=== PATIENT | male | born 1985 | race Caucasian/White ===

== ENCOUNTER 2017-01-26 21:05 | Emergency (ER) | payer SELFPAY ==
[2017-01-26] MEDS ORDERED: Ketorolac 60 MG/2 ML SDV IM ONE (21:11)
[2017-01-26 21:13] VITALS: BP 177/106
--- NOTE | 2017-01-26 21:19 | EDM.PDOC ---
ED HPI LOWER BACK PAIN/INJURY - General Chief Complaint: Back Pain or Injury Stated Complaint: PT HAS BACK PAINS Time Seen by Provider: 01/26/17 21:11 - History of Present Illness INITIAL COMMENTS - FREE TEXT/NARRATIVE: HISTORY AND PHYSICAL: [31-year-old male who is coughing at home and had right sided back pain after a cough] History of Present Illness: [As she was out smoking a cigarette came in the house of] Review of Systems: As per history of present illness and below otherwise all systems reviewed and negative. Past medical history: As per history of present illness and as reviewed below otherwise noncontributory. Surgical history: As per history of present illness and as reviewed below otherwise noncontributory. Social history: No reported history of drug or alcohol abuse. Family history: As per history of present illness and as reviewed below otherwise noncontributory. Physical exam: Alert gentleman who does not want to sit down it hurts more is holding his right ribs in the back HEENT: Atraumatic, normocehpalic, pupils reactive, negative for conjunctival pallor or scleral icterus, mucous membranes moist, throat clear, neck supple, nontender, trachea midline. Lungs: Clear to auscultation, breath sounds equal bilaterally, chest non tender. Heart: S1S2, regular, negative for clicks, rubs, or JVD. Abdomen: Soft, nondistended, nontender. Negative for masses or hepatossplenmegaly. Negative for costovertebral tenderness. Pelvis: Stable nontender. Genitourinary: Deferred. Rectal: Deferred Extremities: Atraumatic, negative for cords or calf pain. Neurovascular unremarkable. Neuro: Awake, alert, oriented. Cranial nerves II through XII unremarkable. Cerebellum unremarkable. Motor and sensory unremarkable throughout. Exam nonfocal. Diagnostics: [XRAY ribs/chest] Therapeutics: []Toradal Impression: [back/ rib pain] Plan: [Flexeril 10 tid prn muscle spasm #30 NR Diclofenac 75 mg bid prn pain#20NR] Definitive disposition and diagnosis as appropriate pending reevaluation and review of above. Timing/Duration: Reports: Hour(s): Location: Reports: lower Quality: Reports: Stabbing Severity: moderate Place of Occurrence: home Improves with: Reports: None Worsens with: Reports: Movement Context: Reports: other (cough) - Related Data Allergies/ADRs: Allergies Allergy/AdvReac Type Severity Reaction Status Date / Time No Known Allergies Allergy Verified 01/26/17 21:08 Home Meds: Home Meds Cyclobenzaprine [Flexeril] 10 mg PO TID PRN #30 tablet 01/26/17 [Rx] Diclofenac Sodium 25 mg PO TID #21 tablet. 01/26/17 [Rx] ED ROS GENERAL - Review of Systems Review Of Systems: ROS reveals no pertinent complaints other than HPI. ED EXAM,LOWER BACK PAIN/INJURY - Physical Exam Exam: See Below (see dictation) Course - Vital Signs Last Recorded V/S: Last Vital Signs Temp 36.9 C 01/26/17 21:09 Pulse 119 H 01/26/17 21:09 Resp 16 01/26/17 21:09 BP 177/106 H 01/26/17 21:09 Pulse Ox 92 L 01/26/17 21:09 - Orders/Labs/Meds Orders: Active Orders 24 hr Category Date Time Status Ribs 2V w Chest Rt [CR] Stat Exams 01/26/17 21:16 Taken Cyclobenzaprine [Flexeril] Med 01/26/17 21:59 Once 10 mg PO ONETIME ONE Meds: Medications Discontinued Medications Generic Name Dose Route Start Last Admin Trade Name Freq PRN Reason Stop Dose Admin Acetaminophen/Hydrocodone Bitart 1 tab 01/26/17 21:59 [place] 325-10 Mg PO 01/26/17 22:00 ONETIME ONE Ketorolac Tromethamine 60 mg 01/26/17 21:11 01/26/17 21:43 Toradol IM 01/26/17 21:12 60 mg ONETIME ONE Administration Departure - Departure Time of Disposition: 22:00 Disposition: Home, Self-Care 01 Condition: good Clinical Impression: Muscle spasm of back Prescriptions: Cyclobenzaprine [Flexeril] 10 mg PO TID PRN #30 tablet PRN Reason: Spasms Diclofenac Sodium 25 mg PO TID #21 tablet. Instructions: Muscle Strain, [id number] Forms: ED Department Discharge - My Orders Last 24 Hours: My Active Orders 01/26/17 21:16 Ribs 2V w Chest Rt [CR] Stat 01/26/17 21:59 Cyclobenzaprine [Flexeril] 10 mg PO ONETIME ONE - Assessment/Plan Last 24 Hours: My Active Orders 01/26/17 21:16 Ribs 2V w Chest Rt [CR] Stat 01/26/17 21:59 Cyclobenzaprine [Flexeril] 10 mg PO ONETIME ONE
[2017-01-26] MEDS ORDERED: Acetaminophen/HYDROcodone 325-10 MG Tab PO ONE (21:59)
[2017-01-26] MEDS ORDERED: Cyclobenzaprine 10 MG Tab PO ONE (21:59)
--- NOTE | 2017-01-29 16:45 | CR ---
EXAM DATE: 01/26/17 PATIENT'S AGE: 31 Patient: ANDRE TUBBS Facility: [place], [place] Site . Site : [id number] Study: XRay Chest ribs w/chest [id number]/13/[id number] 9:35:10 PM Ordering Physician: Doctor Peguero Final Report: INDICATION: Right-sided pain following cough TECHNIQUE: Chest and right ribs 4 views. COMPARISON: None FINDINGS: Cardiovascular and mediastinum: Heart size and vasculature are normal in caliber and appearance. Mediastinum is within normal limits. Lungs and pleural spaces: Lungs are clear. No sign of infiltrate or mass. No sign of pleural effusion. No pneumothorax. Bones and soft tissues: Detailed oblique images of the right ribs demonstrate no fractures or bone lesions. IMPRESSION: Unremarkable chest and right ribs. Dictated by Benito Pang MD @ 01/26/2017 9:49:20 PM Dictated by: Benito Pang MD @ 01/26/2017 21:49:32 (Electronic Signature) Report Signed by Proxy and Original Signed Document filed in the Medical Record. [facility]
== END 2017-01-26 22:34 | disposition home or self-care (01) ==
LOC: MW.ED 21:05
DX: M62.830 Muscle spasm of back (principal)
CPT/HCPCS: 71101; 96372; 99284; A9270; J1885; 99283

== ENCOUNTER 2020-05-06 11:04 | Inpatient (IN) | payer MEDICAID ==
[2020-05-06] MEDS ORDERED: Sodium Chloride 0.9% 10 ML Syringe FLUSH PRN (11:50)
[2020-05-06] MEDS ORDERED: Sodium Chloride 0.9% 2.5 ML Syringe FLUSH PRN (11:50)
[2020-05-06] MEDS ORDERED: Sodium Chloride 0.9% 10 ML SDV IV PRN (11:50)
--- NOTE | 2020-05-06 12:11 | EDM.PDOC ---
ED HPI GENERAL MEDICAL PROBLEM - General Chief Complaint: Genitourinary Problem Stated Complaint: GROIN PAIN Time Seen by Provider: 05/06/20 11:30 Source of Information: Reports: Patient History Limitations: Reports: No Limitations - History of Present Illness INITIAL COMMENTS - FREE TEXT/NARRATIVE: 34-year-old male with a past medical history of hypertension presenting with low er body edema. Patient reports a 5 to 6-month history of increasing abdominal distention. 2 months of bilateral lower extremity edema. 2 days of new onset scrotal edema. Complains of several months of exertional dyspnea. No known history of hepatic, renal, or cardiac disease. No known history of congestive heart failure. Denies any genital lesions, fever, hematuria, penile discharge, chest discomfort. No other complaints. testicular Pain Score (Numeric/FACES): 4 - Related Data Allergies Allergy/AdvReac Type Severity Reaction Status Date / Time No Known Allergies Allergy Verified 05/06/20 11:18 Home Meds: Home Meds . [No Known Home Meds] 05/06/20 [History] Past Medical History HEENT History: Reports: None Cardiovascular History: Reports: Hypertension Respiratory History: Reports: None Gastrointestinal History: Reports: None Genitourinary History: Reports: None Musculoskeletal History: Reports: None Neurological History: Reports: None Psychiatric History: Reports: None Endocrine/Metabolic History: Reports: None Hematologic History: Reports: None - Infectious Disease History Infectious Disease History: Reports: Chicken Pox Social & Family History - Family History Family Medical History: Noncontributory - Tobacco Use Smoking Status *Q: Current Every Day Smoker Years of Tobacco use: 18 Packs/Tins Daily: 1 - Caffeine Use Caffeine Use: Reports: None - Recreational Drug Use Recreational Drug Use: No ED ROS GENERAL - Review of Systems Review Of Systems: See Below Constitutional: Denies: Fever, Chills Respiratory: Reports: No Symptoms, Shortness of Breath (Exertional) Cardiovascular: Reports: Edema, Orthopnea. Denies: Chest Pain, Syncope Endocrine: Denies: Polyuria GI/Abdominal: Reports: Distension. Denies: Abdominal Pain, Diarrhea, Decreased Appetite, Melena, Nausea, Vomiting : Denies: Dysuria, Flank Pain, Frequency, Hematuria, Urgency, Urinary Retention Musculoskeletal: Denies: Back Pain Skin: Reports: No Symptoms Neurological: Reports: No Symptoms Psychiatric: Reports: No Symptoms Hematologic/Lymphatic: Reports: No Symptoms Immunologic: Reports: No Symptoms ED EXAM, RENAL/ - Physical Exam Exam: See Below Text/Narrative:: Vital signs reviewed. Nursing notes reviewed. Constitutional: Awake, alert, non-distressed. Head: Normocephalic, atraumatic. Eyes: EOMI, conjunctiva normal, no discharge, no scleral icterus. Ears, Nose, Throat: External ears and nose normal, moist oral mucosa. Cardiovascular: 2+ radial pulse, capillary refill less than 2 seconds. Pitting edema of the bilateral lower extremities. Pulmonary: normal work of breathing, no accessory muscle use. Abdomen/GI: Obese, edematous, nontender, no guarding or rigidity, no masses. : Diffuse scrotal edema without induration, erythema, or discoloration to suggest Jami's gangrene or cellulitis Musculoskeletal: No deformities. Integumentary: Appropriate color for ethnicity, warm, dry, no pallor or jaundice, no rash. Neurologic: Alert, answering questions appropriately, normal speech, no facial droop, moving all extremities well. Psychiatric: Appropriate mood and affect, normal thought process. Course - Vital Signs Text/Narrative:: 34-year-old male with anasarca. Patient tachycardic and hypertensive on arrival. Mildly hypoxic to 94%. well- appearing, looks nontoxic. Differential diagnosis includes but is not limited to: IVC obstruction, congestive heart failure, hepatic failure, nephrotic syndrome, renal failure, malignancy, cirrhosis, etc. On exam, grossly volume overloaded. Also noted to be hypoxic to the high 80s on room air, suspect that there is an element of undiagnosed cor pulmonale/sleep a pnea. Twelve-lead EKG shows no acute changes. CBC and INR are reassuring. Venous blood gas shows normal pH on room air with elevated PCO2 and bicarbonate, suggesting chronic compensation for respiratory acidosis. Electrolytes are reassuring, renal function normal. Bilirubin is elevated at 1.8. Alkaline phosphatase 169. Troponin negative. BNP is 370. Urinalysis shows protein and bilirubin. Obtain CT imaging of the chest, abdomen, and pelvis which was indicative of volume overload but showed no other acute pathologic findings. Given degree of edema, patient will need to undergo IV diuresis and admission to the hospital. Anticipate echocardiogram while inpatient. Suspicious for new onset congestive heart failure. I spoke with the accepting hospitalist Dr. Delarosa who agrees to admit. Last Recorded V/S: Last Vital Signs Temp 36.4 C 05/06/20 11:19 Pulse 99 05/06/20 14:29 Resp 23 H 05/06/20 14:29 BP 170/106 H 05/06/20 14:29 Pulse Ox 91 L 05/06/20 14:29 - Orders/Labs/Meds Orders: Active Orders 24 hr Category Date Time Status Cardiac Monitoring [RC] . DIRECTED Care 05/06/20 11:50 Active EKG 12 Lead [EKG Documentation Completion] [RC] STAT Care 05/06/20 12:48 Active Pulse Oximetry [RC] ASDIRECTED Care 05/06/20 11:50 Active Sodium Chloride 0.9% [Normal Saline] Med 05/06/20 11:50 Active 10 ml IV ASDIRECTED PRN Sodium Chloride 0.9% [Saline Flush] Med 05/06/20 11:50 Active 10 ml FLUSH ASDIRECTED PRN Sodium Chloride 0.9% [Saline Flush] Med 05/06/20 11:50 Active 2.5 ml FLUSH ASDIRECTED PRN Peripheral IV Insertion Adult [OM.PC] Stat Oth 05/06/20 11:50 Ordered Medication Orders Sodium Chloride (Saline Flush) 10 ml FLUSH ASDIRECTED PRN PRN Reason: Keep Vein Open Sodium Chloride (Saline Flush) 2.5 ml FLUSH ASDIRECTED PRN PRN Reason: Keep Vein Open Sodium Chloride (Normal Saline) 10 ml IV ASDIRECTED PRN PRN Reason: IV Use Labs: Laboratory Tests 05/06/20 05/06/20 05/06/20 Range/Units 12:39 12:39 12:39 WBC 8.99 (4.0-11.0) K/uL RBC 5.27 (4.50-5.90) M/uL Hgb 14.6 (13.0-17.0) g/dL Hct 47.2 (38.0-50.0) % MCV 89.6 (80.0-98.0) fL MCH 27.7 (27.0-32.0) pg MCHC 30.9 L (31.0-37.0) g/dL RDW Std Deviation 55.6 (28.0-62.0) fl RDW Coeff of Nabor 17 H (11.0-15.0) % Plt Count 309 (150-400) K/uL MPV 11.00 (7.40-12.00) fL Neut % (Auto) 71.7 (48.0-80.0) % Lymph % (Auto) 15.2 L (16.0-40.0) % [place] % (Auto) 11.9 (0.0-15.0) % Eos % (Auto) 1.0 (0.0-7.0) % Baso % (Auto) 0.2 (0.0-1.5) % Neut # (Auto) 6.4 H (1.4-5.7) K/uL Lymph # (Auto) 1.4 (0.6-2.4) K/uL [place] # (Auto) 1.1 H (0.0-0.8) K/uL Eos # (Auto) 0.1 (0.0-0.7) K/uL Baso # (Auto) 0.0 (0.0-0.1) K/uL Nucleated RBC % 0.0 /100WBC Nucleated RBCs # 0 K/uL INR 1.09 VBG pH (7.31-7.41) VBG pCO2 (35-45) mmHG VBG pO2 (30-40) mmHG VBG HCO3 (22-30) mEq/L VBG Total CO2 (41-51) mmol/L VBG Base Excess (-3.0-3.0) Sodium 139 (136-148) mmol/L Potassium 3.8 (3.5-5.1) mmol/L Chloride 100 (98-107) mmol/L Carbon Dioxide 29.8 (21.0-32.0) mmol/L BUN 10 (7.0-18.0) mg/dL Creatinine 1.0 (0.8-1.3) mg/dL Est Cr Clr Drug Dosing 112.09 mL/min Estimated GFR (MDRD) > 60.0 ml/min Glucose 131 H (74-106) mg/dL Calcium 9.4 (8.5-10.1) mg/dL Total Bilirubin 1.8 H (0.2-1.0) mg/dL AST 27 (15-37) IU/L ALT 37 (14-63) IU/L Alkaline Phosphatase 169 H (46-116) U/L Troponin I < 0.050 (0.000-0.056) ng/mL B-Natriuretic Peptide (<100) PG/ML Total Protein 8.1 (6.4-8.2) g/dL Albumin 3.4 (3.4-5.0) g/dL Globulin 4.7 H (2.6-4.0) g/dL Albumin/Globulin Ratio 0.7 L (0.9-1.6) Urine Color Urine Appearance Urine pH (5.0-8.0) Ur Specific [place] (1.001-1.035) Urine Protein (NEGATIVE) mg/dL Urine Glucose (UA) (NEGATIVE) mg/dL Urine Ketones (NEGATIVE) mg/dL Urine Occult Blood (NEGATIVE) Urine Nitrite (NEGATIVE) Urine Bilirubin (NEGATIVE) Urine Ictotest Urine Urobilinogen (<2.0) EU/dL Ur Leukocyte Esterase (NEGATIVE) Urine RBC (0-2/HPF) Urine WBC (0-5/HPF) Ur Epithelial Cells (NONE-FEW) Urine Bacteria (NEGATIVE) 05/06/20 05/06/20 05/06/20 Range/Units 12:39 12:39 12:44 WBC (4.0-11.0) K/uL RBC (4.50-5.90) M/uL Hgb (13.0-17.0) g/dL Hct (38.0-50.0) % MCV (80.0-98.0) fL MCH (27.0-32.0) pg MCHC (31.0-37.0) g/dL RDW Std Deviation (28.0-62.0) fl RDW Coeff of [place] (11.0-15.0) % Plt Count (150-400) K/uL MPV (7.40-12.00) fL Neut % (Auto) (48.0-80.0) % Lymph % (Auto) (16.0-40.0) % [place] % (Auto) (0.0-15.0) % Eos % (Auto) (0.0-7.0) % Baso % (Auto) (0.0-1.5) % Neut # (Auto) (1.4-5.7) K/uL Lymph # (Auto) (0.6-2.4) K/uL [place] # (Auto) (0.0-0.8) K/uL Eos # (Auto) (0.0-0.7) K/uL Baso # (Auto) (0.0-0.1) K/uL Nucleated RBC % /100WBC Nucleated RBCs # K/uL INR VBG pH 7.37 (7.31-7.41) VBG pCO2 55 H (35-45) mmHG VBG pO2 33 (30-40) mmHG VBG HCO3 32 H (22-30) mEq/L VBG Total CO2 29 L (41-51) mmol/L VBG Base Excess 4.8 H (-3.0-3.0) Sodium (136-148) mmol/L Potassium (3.5-5.1) mmol/L Chloride (98-107) mmol/L Carbon Dioxide (21.0-32.0) mmol/L BUN (7.0-18.0) mg/dL Creatinine (0.8-1.3) mg/dL Est Cr Clr Drug Dosing mL/min Estimated GFR (MDRD) ml/min Glucose (74-106) mg/dL Calcium (8.5-10.1) mg/dL Total Bilirubin (0.2-1.0) mg/dL AST (15-37) IU/L ALT (14-63) IU/L Alkaline Phosphatase (46-116) U/L Troponin I (0.000-0.056) ng/mL B-Natriuretic Peptide 370 H (<100) PG/ML Total Protein (6.4-8.2) g/dL Albumin (3.4-5.0) g/dL Globulin (2.6-4.0) g/dL Albumin/Globulin Ratio (0.9-1.6) Urine Color YELLOW Urine Appearance CLEAR Urine pH 6.5 (5.0-8.0) Ur Specific [place] 1.025 (1.001-1.035) Urine Protein 100 H (NEGATIVE) mg/dL Urine Glucose (UA) NEGATIVE (NEGATIVE) mg/dL Urine Ketones NEGATIVE (NEGATIVE) mg/dL Urine Occult Blood NEGATIVE (NEGATIVE) Urine Nitrite NEGATIVE (NEGATIVE) Urine Bilirubin SMALL H (NEGATIVE) Urine Ictotest NEGATIVE Urine Urobilinogen 4.0 H (<2.0) EU/dL Ur Leukocyte Esterase NEGATIVE (NEGATIVE) Urine RBC 0-1 (0-2/HPF) Urine WBC 0-1 (0-5/HPF) Ur Epithelial Cells RARE (NONE-FEW) Urine Bacteria RARE (NEGATIVE) Meds: Medications Generic Name Dose Route Start Last Admin Trade Name Racheal PRN Reason Stop Dose Admin Sodium Chloride 10 ml 05/06/20 11:50 Saline Flush FLUSH ASDIRECTED PRN Keep Vein Open Sodium Chloride 2.5 ml 05/06/20 11:50 Saline Flush FLUSH ASDIRECTED PRN Keep Vein Open Sodium Chloride 10 ml 05/06/20 11:50 Normal Saline IV ASDIRECTED PRN IV Use Discontinued Medications Generic Name Dose Route Start Last Admin Trade Name Racheal PRN Reason Stop Dose Admin Furosemide Confirm 05/06/20 14:48 05/06/20 14:52 Lasix Administered 05/06/20 14:49 Not Given Dose 40 mg .ROUTE .STK-MED ONE Furosemide 40 mg 05/06/20 14:51 05/06/20 14:52 Lasix IVPUSH 05/06/20 14:52 40 mg NOW ONE Administration Furosemide 40 mg/ Sodium 54 mls @ 100 mls/hr 05/06/20 14:42 Chloride IV 05/06/20 15:14 ONETIME ONE Iopamidol 100 ml 05/06/20 14:09 05/06/20 14:09 [id number] (76%) IVPUSH 05/06/20 14:10 100 ml ONETIME ONE Administration Departure - Departure Time of Disposition: 14:57 Disposition: Admitted As Inpatient 64 Condition: Good Clinical Impression: Edema - Discharge Information Sepsis Event Note (ED) - Evaluation Sepsis Screening Result: No Definite Risk - Focused Exam Vital Signs: Vital Signs Temp Pulse Resp BP Pulse Ox 05/06/20 14:29 99 23 H 170/106 H 91 L 05/06/20 14:09 100 164/109 H 93 L 05/06/20 13:25 101 H 20 155/111 H 86 L 05/06/20 13:10 97 16 165/93 H 85 L 05/06/20 11:19 36.4 C 119 H 18 180/130 H 94 L - My Orders Last 24 Hours: My Active Orders 05/06/20 11:50 Cardiac Monitoring [RC] . DIRECTED Pulse Oximetry [RC] ASDIRECTED Sodium Chloride 0.9% [Normal Saline] 10 ml IV ASDIRECTED PRN Sodium Chloride 0.9% [Saline Flush] 10 ml FLUSH ASDIRECTED PRN Sodium Chloride 0.9% [Saline Flush] 2.5 ml FLUSH ASDIRECTED PRN Peripheral IV Insertion Adult [OM.PC] Stat 05/06/20 12:48 EKG 12 Lead [EKG Documentation Completion] [RC] STAT - Assessment/Plan Last 24 Hours: My Active Orders 05/06/20 11:50 Cardiac Monitoring [RC] . DIRECTED Pulse Oximetry [RC] ASDIRECTED Sodium Chloride 0.9% [Normal Saline] 10 ml IV ASDIRECTED PRN Sodium Chloride 0.9% [Saline Flush] 10 ml FLUSH ASDIRECTED PRN Sodium Chloride 0.9% [Saline Flush] 2.5 ml FLUSH ASDIRECTED PRN Peripheral IV Insertion Adult [OM.PC] Stat 05/06/20 12:48 EKG 12 Lead [EKG Documentation Completion] [RC] STAT
[2020-05-06 13:18] LABS: BLOOD UREA NITROGEN,BUN 10 mg/dL (7.0-18.0); CARBON DIOXIDE,CO2 29.8 mmol/L (21.0-32.0); CHLORIDE,CL 100 mmol/L (98-107); GLUCOSE RANDOM 131 mg/dL (74-106); POTASSIUM,K 3.8 mmol/L (3.5-5.1); SODIUM,NA 139 mmol/L (136-148)
[2020-05-06] MEDS ORDERED: Iopamidol 755 Mg/ML 100 ML Bottle IVPUSH ONE (14:09)
--- NOTE | 2020-05-06 14:14 | CR ---
Chest: Portable view of the chest was obtained. Comparison: Prior chest x-ray of 01/26/17. Heart is felt to be mildly enlarged. Lungs are clear with no acute parenchymal change. Bony structures are grossly intact. Impression: 1. Heart is felt to be mildly enlarged. 2. Nothing acute is otherwise seen on portable chest x-ray. Diagnostic code #2 Study was dictated in MDT
--- NOTE | 2020-05-06 14:32 | CT ---
CT abdomen and pelvis Technique: Multiple axial sections were obtained from above the dome of the diaphragm inferiorly through the pubic symphysis. Intravenous contrast was utilized. No oral contrast has been given. Findings: Small amount of ascites is seen next to the liver. Minimal fluid seen along the paracolic gutters. Diffuse body wall edema is identified. Liver shows no focal parenchymal abnormality. Liver is generous in size. Spleen appears within normal limits. Adrenal glands show no nodule. Pancreas shows no discrete abnormality. Gallbladder contains no calcified gallstones. Aorta shows no aneurysm. Kidneys show symmetric contrast enhancement. Low-density cyst is noted within the lower right kidney measuring about 2.9 cm in size. Small retroperitoneal lymph nodes are seen believed to be within normal limits. No pelvic mass or adenopathy is seen. Appendix is not definitely appreciated. Bone window settings were reviewed which showed no acute osseous finding. Impression: 1. Diffuse body wall edema. 2. Small amount of fluid next to the liver as well as minimal fluid noted within the paracolic gutters. 3. Nothing acute is appreciated within the abdomen. Diagnostic code #3 Study was dictated in MDT
--- NOTE | 2020-05-06 14:35 | CT ---
CT chest Technique: Multiple axial sections were obtained from above the lung apices inferiorly through the lung bases. Intravenous contrast was utilized. Findings: Multiple small lymph nodes are scattered throughout the mediastinum. Largest lymph node measures approximately 2.0 cm. These are more prominent than usually seen. Mild adenopathy is noted within both hilar regions. Heart is enlarged. Lungs show no acute parenchymal process. Bone window settings were reviewed which appear within normal limits for the patient's age. Impression: 1. Multiple lymph nodes within the mediastinum and hilar regions. Uncertain if this represents previous inflammatory process or represents a lymphoproliferative disease. 2. No acute parenchymal process is seen within either lung. Diagnostic code #9 Study was dictated in MDT
[2020-05-06] MEDS ORDERED: Furosemide 40 MG in Sodium Chloride 0.9% 50 ML IV ONE (14:42)
[2020-05-06] MEDS ORDERED: Furosemide 40 MG/4 ML VIAL ONE (14:48)
[2020-05-06] MEDS ORDERED: Furosemide 40 MG/4 ML VIAL IVPUSH ONE (14:51)
[2020-05-06] MEDS ORDERED: Albuterol/Ipratropium 3.0-0.5 MG/3 ML Neb Soln NEB PRN (15:32)
[2020-05-06] MEDS ORDERED: Ondansetron 4 MG/2 ML SDV IVPUSH PRN (15:32)
--- NOTE | 2020-05-06 15:38 | PCM.HP.2 ---
H&P History of Present Illness - General Date of Service: 05/06/20 Admit Problem/Dx: Admission Diagnosis/Problem Admission Diagnosis/Problem Edema - History of Present Illness Initial Comments - Free Text/Narative: 34-year-old male with a past medical history of hypertension presenting with progressive weight gain, lower body edema, scrotal swelling. Also complains of several months of exertional dyspnea. Denies any genital lesions, fever, hematuria, penile discharge, chest discomfort. No other complaints. In ER patient was noted to be hypoxic to the high 80s on room air, started on NC,Twelve-lead EKG shows no acute ischemic changes. Was hypertensive as well, Labs were mostly reassuring. BNP is 370. Urinalysis shows protein and bilirubin. CT imaging of the chest, abdomen, and pelvis which was indicative of volume overload but showed no other acute pathologic findings. Patient received IV diuresis and was admitted to hospital for further management. testicular Pain Score (Numeric/FACES): 4 Headache Pain Score (Numeric/FACES): 5 Leg Pain Score (Numeric/FACES): 6 Bilateral Thigh Pain Score (Numeric/FACES): 7 - Related Data Allergies/Adverse Reactions: Allergies Allergy/AdvReac Type Severity Reaction Status Date / Time bee venom protein (honey bee) Allergy Shortness Verified 05/06/20 16:02 of Breath Home Medications: Home Meds . [No Known Home Meds] 05/06/20 [History] Past Medical History HEENT History: Reports: None Cardiovascular History: Reports: Hypertension Respiratory History: Reports: None Gastrointestinal History: Reports: None Genitourinary History: Reports: None Musculoskeletal History: Reports: None Neurological History: Reports: None Psychiatric History: Reports: None Endocrine/Metabolic History: Reports: None Hematologic History: Reports: None - Infectious Disease History Infectious Disease History: Reports: Chicken Pox Social & Family History - Family History Family Medical History: Noncontributory - Tobacco Use Smoking Status *Q: Current Every Day Smoker Years of Tobacco use: 18 Packs/Tins Daily: 1 - Caffeine Use Caffeine Use: Reports: None - Recreational Drug Use Recreational Drug Use: No H&P Review of Systems - Review of Systems: Review Of Systems: See Below General: Reports: Weakness, Fatigue. Denies: Fever, Chills, Malaise HEENT: Denies: Dysphasia, Ear Pain Pulmonary: Reports: Shortness of Breath, Cough. Denies: Wheezing, Pleuritic Chest Pain, Sputum, Hemoptysis Cardiovascular: Reports: Dyspnea on Exertion, Orthopnea, Edema. Denies: Chest Pain, Palpitations, Lightheadedness, Syncope Gastrointestinal: Reports: Distension. Denies: Abdominal Pain, Anorexia, Black Stool, Hematemesis, Hematochezia Genitourinary: Reports: Other (scortal swelling). Denies: Dysuria, Frequency, Burning Musculoskeletal: Denies: Neck Pain, Shoulder Pain, Arm Pain Skin: Denies: Cyanosis, Jaundice, Mottled, Pallor Psychiatric: Denies: Confusion, Depression Neurological: Denies: Confusion, Dizziness, Headache Exam - Exam Exam: See Below - Vital Signs Vital Signs: Last Vital Signs Temp 36.4 C 05/06/20 11:19 Pulse 99 05/06/20 14:29 Resp 23 H 05/06/20 14:29 BP 170/106 H 05/06/20 14:29 Pulse Ox 91 L 05/06/20 14:29 Weight: 195.045 kg - Exam Quality Assessment: Supplemental Oxygen General: Alert, Oriented, Cooperative Neck: Supple, Trachea Midline Lungs: Decreased Breath Sounds, Crackles Cardiovascular: Regular Rate, Regular Rhythm, Normal S1, Normal S2 GI/Abdominal Exam: Normal Bowel Sounds, Soft, Non-Tender, Distended Extremities: Normal Range of Motion, Pedal Edema - Patient Data Lab Results Last 24 hrs: Laboratory Results - last 24 hr 05/06/20 05/06/20 05/06/20 Range/Units 12:39 12:39 12:39 WBC 8.99 (4.0-11.0) K/uL RBC 5.27 (4.50-5.90) M/uL Hgb 14.6 (13.0-17.0) g/dL Hct 47.2 (38.0-50.0) % MCV 89.6 (80.0-98.0) fL MCH 27.7 (27.0-32.0) pg MCHC 30.9 L (31.0-37.0) g/dL RDW Std Deviation 55.6 (28.0-62.0) fl RDW Coeff of Nabor 17 H (11.0-15.0) % Plt Count 309 (150-400) K/uL MPV 11.00 (7.40-12.00) fL Neut % (Auto) 71.7 (48.0-80.0) % Lymph % (Auto) 15.2 L (16.0-40.0) % Ritchie % (Auto) 11.9 (0.0-15.0) % Eos % (Auto) 1.0 (0.0-7.0) % Baso % (Auto) 0.2 (0.0-1.5) % Neut # (Auto) 6.4 H (1.4-5.7) K/uL Lymph # (Auto) 1.4 (0.6-2.4) K/uL Ritchie # (Auto) 1.1 H (0.0-0.8) K/uL Eos # (Auto) 0.1 (0.0-0.7) K/uL Baso # (Auto) 0.0 (0.0-0.1) K/uL Nucleated RBC % 0.0 /100WBC Nucleated RBCs # 0 K/uL INR 1.09 VBG pH (7.31-7.41) VBG pCO2 (35-45) mmHG VBG pO2 (30-40) mmHG VBG HCO3 (22-30) mEq/L VBG Total CO2 (41-51) mmol/L VBG Base Excess (-3.0-3.0) Sodium 139 (136-148) mmol/L Potassium 3.8 (3.5-5.1) mmol/L Chloride 100 (98-107) mmol/L Carbon Dioxide 29.8 (21.0-32.0) mmol/L BUN 10 (7.0-18.0) mg/dL Creatinine 1.0 (0.8-1.3) mg/dL Est Cr Clr Drug Dosing 112.09 mL/min Estimated GFR (MDRD) > 60.0 ml/min Glucose 131 H (74-106) mg/dL Calcium 9.4 (8.5-10.1) mg/dL Total Bilirubin 1.8 H (0.2-1.0) mg/dL AST 27 (15-37) IU/L ALT 37 (14-63) IU/L Alkaline Phosphatase 169 H (46-116) U/L Troponin I < 0.050 (0.000-0.056) ng/mL B-Natriuretic Peptide (<100) PG/ML Total Protein 8.1 (6.4-8.2) g/dL Albumin 3.4 (3.4-5.0) g/dL Globulin 4.7 H (2.6-4.0) g/dL Albumin/Globulin Ratio 0.7 L (0.9-1.6) Urine Color Urine Appearance Urine pH (5.0-8.0) Ur Specific [place] (1.001-1.035) Urine Protein (NEGATIVE) mg/dL Urine Glucose (UA) (NEGATIVE) mg/dL Urine Ketones (NEGATIVE) mg/dL Urine Occult Blood (NEGATIVE) Urine Nitrite (NEGATIVE) Urine Bilirubin (NEGATIVE) Urine Ictotest Urine Urobilinogen (<2.0) EU/dL Ur Leukocyte Esterase (NEGATIVE) Urine RBC (0-2/HPF) Urine WBC (0-5/HPF) Ur Epithelial Cells (NONE-FEW) Urine Bacteria (NEGATIVE) 05/06/20 05/06/20 05/06/20 Range/Units 12:39 12:39 12:44 WBC (4.0-11.0) K/uL RBC (4.50-5.90) M/uL Hgb (13.0-17.0) g/dL Hct (38.0-50.0) % MCV (80.0-98.0) fL MCH (27.0-32.0) pg MCHC (31.0-37.0) g/dL RDW Std Deviation (28.0-62.0) fl RDW Coeff of Nabor (11.0-15.0) % Plt Count (150-400) K/uL MPV (7.40-12.00) fL Neut % (Auto) (48.0-80.0) % Lymph % (Auto) (16.0-40.0) % Ritchie % (Auto) (0.0-15.0) % Eos % (Auto) (0.0-7.0) % Baso % (Auto) (0.0-1.5) % Neut # (Auto) (1.4-5.7) K/uL Lymph # (Auto) (0.6-2.4) K/uL Ritchie # (Auto) (0.0-0.8) K/uL Eos # (Auto) (0.0-0.7) K/uL Baso # (Auto) (0.0-0.1) K/uL Nucleated RBC % /100WBC Nucleated RBCs # K/uL INR VBG pH 7.37 (7.31-7.41) VBG pCO2 55 H (35-45) mmHG VBG pO2 33 (30-40) mmHG VBG HCO3 32 H (22-30) mEq/L VBG Total CO2 29 L (41-51) mmol/L VBG Base Excess 4.8 H (-3.0-3.0) Sodium (136-148) mmol/L Potassium (3.5-5.1) mmol/L Chloride (98-107) mmol/L Carbon Dioxide (21.0-32.0) mmol/L BUN (7.0-18.0) mg/dL Creatinine (0.8-1.3) mg/dL Est Cr Clr Drug Dosing mL/min Estimated GFR (MDRD) ml/min Glucose (74-106) mg/dL Calcium (8.5-10.1) mg/dL Total Bilirubin (0.2-1.0) mg/dL AST (15-37) IU/L ALT (14-63) IU/L Alkaline Phosphatase (46-116) U/L Troponin I (0.000-0.056) ng/mL B-Natriuretic Peptide 370 H (<100) PG/ML Total Protein (6.4-8.2) g/dL Albumin (3.4-5.0) g/dL Globulin (2.6-4.0) g/dL Albumin/Globulin Ratio (0.9-1.6) Urine Color YELLOW Urine Appearance CLEAR Urine pH 6.5 (5.0-8.0) Ur Specific [place] 1.025 (1.001-1.035) Urine Protein 100 H (NEGATIVE) mg/dL Urine Glucose (UA) NEGATIVE (NEGATIVE) mg/dL Urine Ketones NEGATIVE (NEGATIVE) mg/dL Urine Occult Blood NEGATIVE (NEGATIVE) Urine Nitrite NEGATIVE (NEGATIVE) Urine Bilirubin SMALL H (NEGATIVE) Urine Ictotest NEGATIVE Urine Urobilinogen 4.0 H (<2.0) EU/dL Ur Leukocyte Esterase NEGATIVE (NEGATIVE) Urine RBC 0-1 (0-2/HPF) Urine WBC 0-1 (0-5/HPF) Ur Epithelial Cells RARE (NONE-FEW) Urine Bacteria RARE (NEGATIVE) Result Diagrams: 05/09/20 06:01 05/09/20 06:01 Sepsis Event Note - Evaluation Sepsis Screening Result: No Definite Risk - Focused Exam Vital Signs: Vital Signs Temp Pulse Resp BP Pulse Ox 05/06/20 14:29 99 23 H 170/106 H 91 L 05/06/20 14:09 100 164/109 H 93 L 05/06/20 13:25 101 H 20 155/111 H 86 L 05/06/20 13:10 97 16 165/93 H 85 L 05/06/20 11:19 36.4 C 119 H 18 180/130 H 94 L Date Exam was Performed: 05/09/20 Time Exam was Performed: 19:45 - Problem List (1) New onset of congestive heart failure SNOMED Code(s): 25759435 ICD Code: I50.9 - HEART FAILURE, UNSPECIFIED Status: Acute Current Visit: Yes (2) HTN (hypertension) SNOMED Code(s): 63321367 ICD Code: I10 - ESSENTIAL (PRIMARY) HYPERTENSION Status: Acute Current Visit: Yes (3) Acute respiratory failure with hypoxia SNOMED Code(s): 27490120, 677564547 ICD Code: J96.01 - ACUTE RESPIRATORY FAILURE WITH HYPOXIA Status: Acute Current Visit: Yes Problem List Initiated/Reviewed/Updated: Yes Orders Last 24hrs: Active Orders 24 hr Category Date Time Status Patient Status [ADT] Stat ADT 05/06/20 14:42 Active Ambulate [RC] ASDIRECTED Care 05/06/20 15:32 Ordered Antiembolic Devices [RC] PER UNIT ROUTINE Care 05/06/20 15:34 Ordered Cardiac Monitoring [RC] . DIRECTED Care 05/06/20 11:50 Active EKG 12 Lead [EKG Documentation Completion] [RC] STAT Care 05/06/20 12:48 Active Oxygen Therapy [RC] PRN Care 05/06/20 15:32 Ordered Pulse Oximetry [RC] ASDIRECTED Care 05/06/20 11:50 Active Pulse Oximetry [RC] CONTINUOUS Care 05/06/20 15:32 Ordered RT Aerosol Therapy [RC] ASDIRECTED Care 05/06/20 15:37 Ordered Telemetry Monitoring [Cardiac Monitoring] [RC] . Care 05/06/20 14:56 Active DIRECTED VTE/DVT Education [RC] PER UNIT ROUTINE Care 05/06/20 15:32 Ordered Vital Signs [RC] Q4H Care 05/06/20 15:32 Ordered Heart Healthy Diet [DIET] Diet 05/06/20 Dinner Ordered Albuterol/Ipratropium [DuoNeb 3.0-0.5 MG/3 ML] Med 05/06/20 15:32 Ordered 3 ml NEB Q4HRRT PRN Heparin Sodium Med 05/06/20 15:45 Ordered 5,000 units SUBCUT Q8H Morphine Med 05/06/20 15:32 Ordered 1 mg IVPUSH Q6H PRN Ondansetron [Zofran] Med 05/06/20 15:32 Ordered 4 mg IVPUSH Q4H PRN Sodium Chloride 0.9% [Normal Saline] Med 05/06/20 11:50 Active 10 ml IV ASDIRECTED PRN Sodium Chloride 0.9% [Saline Flush] Med 05/06/20 11:50 Active 10 ml FLUSH ASDIRECTED PRN Sodium Chloride 0.9% [Saline Flush] Med 05/06/20 11:50 Active 2.5 ml FLUSH ASDIRECTED PRN Peripheral IV Insertion Adult [OM.PC] Stat Oth 05/06/20 11:50 Ordered Sequential Compression Device [OM.PC] Per Unit Routine Oth 05/06/20 15:34 Ordered Resuscitation Status Routine Resus Stat 05/06/20 15:32 Ordered Medication Orders Sodium Chloride (Saline Flush) 10 ml FLUSH ASDIRECTED PRN PRN Reason: Keep Vein Open Sodium Chloride (Saline Flush) 2.5 ml FLUSH ASDIRECTED PRN PRN Reason: Keep Vein Open Sodium Chloride (Normal Saline) 10 ml IV ASDIRECTED PRN PRN Reason: IV Use Assessment/Plan Comment:: 34 y/o M admitted for new onset CHF, generalized edema, likely hypertensive he art disease vs cor-pulmonale Admit to tele Start aggressive diuresis with IV lasix Fluid restriction Ins and outs Daily weight Monitor and replete electrolytes as needed obtain 2 D ECHO PRN labetalol start amlodipine check lipids, HbA1c, TSH Received IV contrast today, if oxygen requirement doesn't improve will obtain CT angio to r/o PE
[2020-05-06] MEDS ORDERED: Labetalol 100 MG/20 ML MDV IVPUSH PRN (15:39)
[2020-05-06] MEDS ORDERED: amLODIPine 5 MG Tab PO SCH (15:45)
[2020-05-06 16:30] LABS: HEMOGLOBIN A1C 7.1 % (4.5-6.2)
[2020-05-06] MEDS: Heparin Sodium 5,000 Units/ML Vial SUBCUT SCH (16:33)
[2020-05-06] MEDS: Furosemide 40 MG/4 ML VIAL IVPUSH SCH (20:43)
[2020-05-06] MEDS: Morphine 2 MG/ML Syringe IVPUSH PRN (20:49)
[2020-05-07] MEDS: Heparin Sodium 5,000 Units/ML Vial SUBCUT SCH ×3 (00:14→17:45)
[2020-05-07] MEDS: Morphine 2 MG/ML Syringe IVPUSH PRN (02:33)
[2020-05-07 06:38] LABS: BLOOD UREA NITROGEN,BUN 11 mg/dL (7.0-18.0); CARBON DIOXIDE,CO2 32.4 mmol/L (21.0-32.0); CHLORIDE,CL 99 mmol/L (98-107); GLUCOSE RANDOM 145 mg/dL (74-106); POTASSIUM,K 3.8 mmol/L (3.5-5.1); SODIUM,NA 137 mmol/L (136-148)
[2020-05-07] MEDS: Furosemide 40 MG/4 ML VIAL IVPUSH SCH ×2 (08:36→20:33)
[2020-05-07] MEDS: Lisinopril 10 MG Tab PO SCH (08:55)
[2020-05-07] MEDS ORDERED: Acetaminophen 500 MG Tab PO PRN ×2 (09:39→15:25)
--- NOTE | 2020-05-07 12:21 | PCM.PN ---
<Mohamud Gayle - Last Filed: 05/07/20 13:11> - General Info Date of Service: 05/07/20 Subjective Update: Bedside: complaining of groin pain, feeling fatigued and tired from not sleeping last night. - Review of Systems General: Reports: Fatigue. Denies: Weakness, Chills HEENT: Reports: No Symptoms Pulmonary: Reports: Wheezing. Denies: Shortness of Breath, Cough Cardiovascular: Reports: Dyspnea on Exertion, Orthopnea, Edema. Denies: Chest Pain, Palpitations Gastrointestinal: Reports: Abdominal Pain Genitourinary: Reports: No Symptoms Musculoskeletal: Reports: No Symptoms Skin: Reports: No Symptoms Neurological: Reports: No Symptoms. Denies: Confusion Psychiatric: Reports: No Symptoms. Denies: Confusion - Patient Data Vitals - Most Recent: Last Vital Signs Temp 98.9 F 05/07/20 08:00 Pulse 89 05/07/20 08:00 Resp 20 05/07/20 08:00 BP 138/89 05/07/20 08:55 Pulse Ox 94 L 05/07/20 08:00 Weight - Most Recent: 195.045 kg I&O - Last 24 Hours: Intake & Output 05/06/20 05/07/20 05/07/20 22:59 06:59 14:59 Intake Total 800 1380 Output Total 2650 3700 Balance -1850 -2320 Lab Results Last 24 Hours: Laboratory Results - last 24 hr 05/06/20 05/06/20 05/06/20 Range/Units 12:39 12:39 12:39 WBC 8.99 (4.0-11.0) K/uL RBC 5.27 (4.50-5.90) M/uL Hgb 14.6 (13.0-17.0) g/dL Hct 47.2 (38.0-50.0) % MCV 89.6 (80.0-98.0) fL MCH 27.7 (27.0-32.0) pg MCHC 30.9 L (31.0-37.0) g/dL RDW Std Deviation 55.6 (28.0-62.0) fl RDW Coeff of Nabor 17 H (11.0-15.0) % Plt Count 309 (150-400) K/uL MPV 11.00 (7.40-12.00) fL Neut % (Auto) 71.7 (48.0-80.0) % Lymph % (Auto) 15.2 L (16.0-40.0) % Park % (Auto) 11.9 (0.0-15.0) % Eos % (Auto) 1.0 (0.0-7.0) % Baso % (Auto) 0.2 (0.0-1.5) % Neut # (Auto) 6.4 H (1.4-5.7) K/uL Lymph # (Auto) 1.4 (0.6-2.4) K/uL Park # (Auto) 1.1 H (0.0-0.8) K/uL Eos # (Auto) 0.1 (0.0-0.7) K/uL Baso # (Auto) 0.0 (0.0-0.1) K/uL Nucleated RBC % 0.0 /100WBC Nucleated RBCs # 0 K/uL INR 1.09 VBG pH (7.31-7.41) VBG pCO2 (35-45) mmHG VBG pO2 (30-40) mmHG VBG HCO3 (22-30) mEq/L VBG Total CO2 (41-51) mmol/L VBG Base Excess (-3.0-3.0) Sodium 139 (136-148) mmol/L Potassium 3.8 (3.5-5.1) mmol/L Chloride 100 (98-107) mmol/L Carbon Dioxide 29.8 (21.0-32.0) mmol/L BUN 10 (7.0-18.0) mg/dL Creatinine 1.0 (0.8-1.3) mg/dL Est Cr Clr Drug Dosing 112.09 mL/min Estimated GFR (MDRD) > 60.0 ml/min Glucose 131 H (74-106) mg/dL Hemoglobin A1c (4.5-6.2) % Calcium 9.4 (8.5-10.1) mg/dL Phosphorus (2.6-4.7) mg/dL Magnesium (1.8-2.4) mg/dL Total Bilirubin 1.8 H (0.2-1.0) mg/dL AST 27 (15-37) IU/L ALT 37 (14-63) IU/L Alkaline Phosphatase 169 H (46-116) U/L Troponin I < 0.050 (0.000-0.056) ng/mL B-Natriuretic Peptide (<100) PG/ML Total Protein 8.1 (6.4-8.2) g/dL Albumin 3.4 (3.4-5.0) g/dL Globulin 4.7 H (2.6-4.0) g/dL Albumin/Globulin Ratio 0.7 L (0.9-1.6) TSH 3rd Generation (0.36-3.74) uIU/mL Urine Color Urine Appearance Urine pH (5.0-8.0) Ur Specific [place] (1.001-1.035) Urine Protein (NEGATIVE) mg/dL Urine Glucose (UA) (NEGATIVE) mg/dL Urine Ketones (NEGATIVE) mg/dL Urine Occult Blood (NEGATIVE) Urine Nitrite (NEGATIVE) Urine Bilirubin (NEGATIVE) Urine Ictotest Urine Urobilinogen (<2.0) EU/dL Ur Leukocyte Esterase (NEGATIVE) Urine RBC (0-2/HPF) Urine WBC (0-5/HPF) Ur Epithelial Cells (NONE-FEW) Urine Bacteria (NEGATIVE) 05/06/20 05/06/20 05/06/20 Range/Units 12:39 12:39 12:39 WBC (4.0-11.0) K/uL RBC (4.50-5.90) M/uL Hgb (13.0-17.0) g/dL Hct (38.0-50.0) % MCV (80.0-98.0) fL MCH (27.0-32.0) pg MCHC (31.0-37.0) g/dL RDW Std Deviation (28.0-62.0) fl RDW Coeff of Nabor (11.0-15.0) % Plt Count (150-400) K/uL MPV (7.40-12.00) fL Neut % (Auto) (48.0-80.0) % Lymph % (Auto) (16.0-40.0) % Park % (Auto) (0.0-15.0) % Eos % (Auto) (0.0-7.0) % Baso % (Auto) (0.0-1.5) % Neut # (Auto) (1.4-5.7) K/uL Lymph # (Auto) (0.6-2.4) K/uL Park # (Auto) (0.0-0.8) K/uL Eos # (Auto) (0.0-0.7) K/uL Baso # (Auto) (0.0-0.1) K/uL Nucleated RBC % /100WBC Nucleated RBCs # K/uL INR VBG pH 7.37 (7.31-7.41) VBG pCO2 55 H (35-45) mmHG VBG pO2 33 (30-40) mmHG VBG HCO3 32 H (22-30) mEq/L VBG Total CO2 29 L (41-51) mmol/L VBG Base Excess 4.8 H (-3.0-3.0) Sodium (136-148) mmol/L Potassium (3.5-5.1) mmol/L Chloride (98-107) mmol/L Carbon Dioxide (21.0-32.0) mmol/L BUN (7.0-18.0) mg/dL Creatinine (0.8-1.3) mg/dL Est Cr Clr Drug Dosing mL/min Estimated GFR (MDRD) ml/min Glucose (74-106) mg/dL Hemoglobin A1c (4.5-6.2) % Calcium (8.5-10.1) mg/dL Phosphorus (2.6-4.7) mg/dL Magnesium (1.8-2.4) mg/dL Total Bilirubin (0.2-1.0) mg/dL AST (15-37) IU/L ALT (14-63) IU/L Alkaline Phosphatase (46-116) U/L Troponin I (0.000-0.056) ng/mL B-Natriuretic Peptide 370 H (<100) PG/ML Total Protein (6.4-8.2) g/dL Albumin (3.4-5.0) g/dL Globulin (2.6-4.0) g/dL Albumin/Globulin Ratio (0.9-1.6) TSH 3rd Generation 4.55 H (0.36-3.74) uIU/mL Urine Color Urine Appearance Urine pH (5.0-8.0) Ur Specific [place] (1.001-1.035) Urine Protein (NEGATIVE) mg/dL Urine Glucose (UA) (NEGATIVE) mg/dL Urine Ketones (NEGATIVE) mg/dL Urine Occult Blood (NEGATIVE) Urine Nitrite (NEGATIVE) Urine Bilirubin (NEGATIVE) Urine Ictotest Urine Urobilinogen (<2.0) EU/dL Ur Leukocyte Esterase (NEGATIVE) Urine RBC (0-2/HPF) Urine WBC (0-5/HPF) Ur Epithelial Cells (NONE-FEW) Urine Bacteria (NEGATIVE) 05/06/20 05/06/20 05/07/20 Range/Units 12:44 16:12 05:55 WBC 10.18 (4.0-11.0) K/uL RBC 5.07 (4.50-5.90) M/uL Hgb 13.6 (13.0-17.0) g/dL Hct 45.6 (38.0-50.0) % MCV 89.9 (80.0-98.0) fL MCH 26.8 L (27.0-32.0) pg MCHC 29.8 L (31.0-37.0) g/dL RDW Std Deviation 55.7 (28.0-62.0) fl RDW Coeff of Nabor 17 H (11.0-15.0) % Plt Count 304 (150-400) K/uL MPV 10.60 (7.40-12.00) fL Neut % (Auto) 72.4 (48.0-80.0) % Lymph % (Auto) 13.6 L (16.0-40.0) % Park % (Auto) 12.0 (0.0-15.0) % Eos % (Auto) 1.6 (0.0-7.0) % Baso % (Auto) 0.4 (0.0-1.5) % Neut # (Auto) 7.4 H (1.4-5.7) K/uL Lymph # (Auto) 1.4 (0.6-2.4) K/uL Park # (Auto) 1.2 H (0.0-0.8) K/uL Eos # (Auto) 0.2 (0.0-0.7) K/uL Baso # (Auto) 0.0 (0.0-0.1) K/uL Nucleated RBC % 0.0 /100WBC Nucleated RBCs # 0 K/uL INR VBG pH (7.31-7.41) VBG pCO2 (35-45) mmHG VBG pO2 (30-40) mmHG VBG HCO3 (22-30) mEq/L VBG Total CO2 (41-51) mmol/L VBG Base Excess (-3.0-3.0) Sodium (136-148) mmol/L Potassium (3.5-5.1) mmol/L Chloride (98-107) mmol/L Carbon Dioxide (21.0-32.0) mmol/L BUN (7.0-18.0) mg/dL Creatinine (0.8-1.3) mg/dL Est Cr Clr Drug Dosing mL/min Estimated GFR (MDRD) ml/min Glucose (74-106) mg/dL Hemoglobin A1c 7.1 H (4.5-6.2) % Calcium (8.5-10.1) mg/dL Phosphorus (2.6-4.7) mg/dL Magnesium (1.8-2.4) mg/dL Total Bilirubin (0.2-1.0) mg/dL AST (15-37) IU/L ALT (14-63) IU/L Alkaline Phosphatase (46-116) U/L Troponin I (0.000-0.056) ng/mL B-Natriuretic Peptide (<100) PG/ML Total Protein (6.4-8.2) g/dL Albumin (3.4-5.0) g/dL Globulin (2.6-4.0) g/dL Albumin/Globulin Ratio (0.9-1.6) TSH 3rd Generation (0.36-3.74) uIU/mL Urine Color YELLOW Urine Appearance CLEAR Urine pH 6.5 (5.0-8.0) Ur Specific [place] 1.025 (1.001-1.035) Urine Protein 100 H (NEGATIVE) mg/dL Urine Glucose (UA) NEGATIVE (NEGATIVE) mg/dL Urine Ketones NEGATIVE (NEGATIVE) mg/dL Urine Occult Blood NEGATIVE (NEGATIVE) Urine Nitrite NEGATIVE (NEGATIVE) Urine Bilirubin SMALL H (NEGATIVE) Urine Ictotest NEGATIVE Urine Urobilinogen 4.0 H (<2.0) EU/dL Ur Leukocyte Esterase NEGATIVE (NEGATIVE) Urine RBC 0-1 (0-2/HPF) Urine WBC 0-1 (0-5/HPF) Ur Epithelial Cells RARE (NONE-FEW) Urine Bacteria RARE (NEGATIVE) 05/07/20 Range/Units 05:55 WBC (4.0-11.0) K/uL RBC (4.50-5.90) M/uL Hgb (13.0-17.0) g/dL Hct (38.0-50.0) % MCV (80.0-98.0) fL MCH (27.0-32.0) pg MCHC (31.0-37.0) g/dL RDW Std Deviation (28.0-62.0) fl RDW Coeff of Nabor (11.0-15.0) % Plt Count (150-400) K/uL MPV (7.40-12.00) fL Neut % (Auto) (48.0-80.0) % Lymph % (Auto) (16.0-40.0) % Park % (Auto) (0.0-15.0) % Eos % (Auto) (0.0-7.0) % Baso % (Auto) (0.0-1.5) % Neut # (Auto) (1.4-5.7) K/uL Lymph # (Auto) (0.6-2.4) K/uL Park # (Auto) (0.0-0.8) K/uL Eos # (Auto) (0.0-0.7) K/uL Baso # (Auto) (0.0-0.1) K/uL Nucleated RBC % /100WBC Nucleated RBCs # K/uL INR VBG pH (7.31-7.41) VBG pCO2 (35-45) mmHG VBG pO2 (30-40) mmHG VBG HCO3 (22-30) mEq/L VBG Total CO2 (41-51) mmol/L VBG Base Excess (-3.0-3.0) Sodium 137 (136-148) mmol/L Potassium 3.8 (3.5-5.1) mmol/L Chloride 99 (98-107) mmol/L Carbon Dioxide 32.4 H (21.0-32.0) mmol/L BUN 11 (7.0-18.0) mg/dL Creatinine 0.9 (0.8-1.3) mg/dL Est Cr Clr Drug Dosing 124.54 mL/min Estimated GFR (MDRD) > 60.0 ml/min Glucose 145 H (74-106) mg/dL Hemoglobin A1c (4.5-6.2) % Calcium 9.1 (8.5-10.1) mg/dL Phosphorus 5.2 H (2.6-4.7) mg/dL Magnesium 2.0 (1.8-2.4) mg/dL Total Bilirubin (0.2-1.0) mg/dL AST (15-37) IU/L ALT (14-63) IU/L Alkaline Phosphatase (46-116) U/L Troponin I (0.000-0.056) ng/mL B-Natriuretic Peptide (<100) PG/ML Total Protein (6.4-8.2) g/dL Albumin (3.4-5.0) g/dL Globulin (2.6-4.0) g/dL Albumin/Globulin Ratio (0.9-1.6) TSH 3rd Generation (0.36-3.74) uIU/mL Urine Color Urine Appearance Urine pH (5.0-8.0) Ur Specific [place] (1.001-1.035) Urine Protein (NEGATIVE) mg/dL Urine Glucose (UA) (NEGATIVE) mg/dL Urine Ketones (NEGATIVE) mg/dL Urine Occult Blood (NEGATIVE) Urine Nitrite (NEGATIVE) Urine Bilirubin (NEGATIVE) Urine Ictotest Urine Urobilinogen (<2.0) EU/dL Ur Leukocyte Esterase (NEGATIVE) Urine RBC (0-2/HPF) Urine WBC (0-5/HPF) Ur Epithelial Cells (NONE-FEW) Urine Bacteria (NEGATIVE) Med Orders - Current: Current Medications Acetaminophen (Tylenol Extra Strength) 500 mg PO Q12H PRN PRN Reason: Pain Last Admin: 05/07/20 10:52 Dose: 500 mg Documented by: Albuterol/Ipratropium (Duoneb 3.0-0.5 Mg/3 Ml) 3 ml NEB Q4H PRN PRN Reason: Shortness Of Breath/wheezing Furosemide (Lasix) 40 mg IVPUSH BID [facility] Last Admin: 05/07/20 08:36 Dose: 40 mg Documented by: Heparin Sodium (Porcine) (Heparin Sodium) 5,000 units SUBCUT Q8H [facility] Last Admin: 05/07/20 08:37 Dose: 5,000 units Documented by: Insulin Aspart (Novolog) 0 unit SUBCUT TIDAC [facility]; Protocol Labetalol HCl (Normodyne) 10 mg IVPUSH Q4H PRN; Protocol PRN Reason: Hypertension Lisinopril (Prinivil) 10 mg PO DAILY [facility] Last Admin: 05/07/20 08:55 Dose: 10 mg Documented by: Morphine Sulfate (Morphine) 1 mg IVPUSH Q6H PRN PRN Reason: Pain (severe 7-10) Stop: 05/07/20 15:36 Last Admin: 05/07/20 02:33 Dose: 1 mg Documented by: Nicotine (Habitrol) 21 mg TRDERM DAILY [facility] Nystatin (Nystatin Crm) 1 gm TOP BID [facility] Ondansetron HCl (Zofran) 4 mg IVPUSH Q4H PRN PRN Reason: Nausea/Vomiting Sodium Chloride (Saline Flush) 10 ml FLUSH ASDIRECTED PRN PRN Reason: Keep Vein Open Sodium Chloride (Saline Flush) 2.5 ml FLUSH ASDIRECTED PRN PRN Reason: Keep Vein Open Sodium Chloride (Normal Saline) 10 ml IV ASDIRECTED PRN PRN Reason: IV Use Discontinued Medications Amlodipine Besylate (Norvasc) 5 mg PO DAILY [facility] Last Admin: 05/06/20 16:32 Dose: 5 mg Documented by: Furosemide (Lasix) Confirm Administered Dose 40 mg .ROUTE .STK-MED ONE Stop: 05/06/20 14:49 Last Admin: 05/06/20 14:52 Dose: Not Given Documented by: Furosemide (Lasix) 40 mg IVPUSH NOW ONE Stop: 05/06/20 14:52 Last Admin: 05/06/20 14:52 Dose: 40 mg Documented by: Furosemide 40 mg/ Sodium (Chloride) 54 mls @ 100 mls/hr IV ONETIME ONE Stop: 05/06/20 15:14 Last Admin: 05/06/20 19:32 Dose: Not Given Documented by: Iopamidol (Isovue-370 (76%)) 100 ml IVPUSH ONETIME ONE Stop: 05/06/20 14:10 Last Admin: 05/06/20 14:09 Dose: 100 ml Documented by: - Exam Quality Assessment: Supplemental Oxygen General: Alert, Oriented, Cooperative, No Acute Distress HEENT: EOMI Neck: Supple Lungs: Other (crackles at bases b/l ) Cardiovascular: Regular Rate, Regular Rhythm (diffuse abdominal edema; minimal tenderness ; no rebound tenderness ) GI/Abdominal Exam: No: No Distention, Guarding (Male) Exam: Circumcised (global scrotal edema ; relief of pain w. lifting of scrotum ) Back Exam: Full Range of Motion Extremities: Other (4/4 pitting edema of lower extremities b/l; mid-thigh ) Skin: Warm, Dry Psy/Mental Status: Alert, Normal Affect Sepsis Event Note - Evaluation Sepsis Screening Result: No Definite Risk - Focused Exam Vital Signs: Vital Signs Temp Pulse Resp BP BP Pulse Ox 05/07/20 08:55 138/89 05/07/20 08:00 98.9 F 89 20 138/83 94 L 05/07/20 04:00 98.2 F 97 21 H 163/98 H 92 L Date Exam was Performed: 05/07/20 Time Exam was Performed: 13:11 - Problem List Review Problem List Initiated/Reviewed/Updated: Yes - My Orders Last 24 Hours: My Active Orders 05/07/20 09:00 lisinopriL [Prinivil] 10 mg PO DAILY 05/07/20 09:38 Accu Check [Blood Glucose Check, Bedside] [RC] TIDMEALS 05/07/20 09:39 Acetaminophen [Tylenol Extra Strength] 500 mg PO Q12H PRN 05/07/20 09:42 Daily Weight [Height and Weight] [RC] DAILY 05/07/20 09:45 Nicotine [Habitrol] 21 mg TRDERM DAILY Nystatin [Nystatin Crm] 1 gm TOP BID 05/07/20 11:30 Insulin Aspart [NovoLOG] See Protocol SUBCUT TIDAC - Plan Plan:: 34 y/o M admitted for new onset CHF, generalized edema, likely hypertensive heart disease vs cor-pulmonale Admitted to tele Appropriate Urine output w. IV 40 mg BID lasix ; continue for now; can increase if necessary Fluid restriction Ins and outs Daily weight Monitor and replete electrolytes as needed obtain 2 D ECHO PRN labetalol discontinue amlodipine Start lisinopril 10 mg daily Elevated A1c; initiated SSI w. TID accu-checks Patient any hx of illicit drug use ; does endorse Tobacco abuse ; will start Nicotine patch Tylenol and morphine for pain now Appearing fatigued at bedside; mild hypercapnia; initiate BiPap ; reassess w. ABG this PM if necessary. (08/20) <Arsalan Delarosa - Last Filed: 05/09/20 19:39> - Patient Data Vitals - Most Recent: Last Vital Signs Temp 36.5 C 05/09/20 16:16 Pulse 85 05/09/20 11:45 Resp 20 05/09/20 16:16 BP 120/46 L 05/09/20 16:16 Pulse Ox 92 L 05/09/20 16:16 I&O - Last 24 Hours: Intake & Output 05/09/20 05/09/20 05/09/20 06:59 14:59 22:59 Intake Total 750 Output Total 2620 4124 Balance -1870 -3274 Lab Results Last 24 Hours: Laboratory Results - last 24 hr 05/09/20 05/09/20 05/09/20 Range/Units 06:01 06:01 07:41 WBC 11.39 H (4.0-11.0) K/uL RBC 5.19 (4.50-5.90) M/uL Hgb 14.4 (13.0-17.0) g/dL Hct 47.5 (38.0-50.0) % MCV 91.5 (80.0-98.0) fL MCH 27.7 (27.0-32.0) pg MCHC 30.3 L (31.0-37.0) g/dL RDW Std Deviation 57.8 (28.0-62.0) fl RDW Coeff of Nabor 17 H (11.0-15.0) % Plt Count 274 (150-400) K/uL MPV 10.50 (7.40-12.00) fL Neut % (Auto) 79.4 (48.0-80.0) % Lymph % (Auto) 9.6 L (16.0-40.0) % Park % (Auto) 10.4 (0.0-15.0) % Eos % (Auto) 0.4 (0.0-7.0) % Baso % (Auto) 0.2 (0.0-1.5) % Neut # (Auto) 9.1 H (1.4-5.7) K/uL Lymph # (Auto) 1.1 (0.6-2.4) K/uL Park # (Auto) 1.2 H (0.0-0.8) K/uL Eos # (Auto) 0.0 (0.0-0.7) K/uL Baso # (Auto) 0.0 (0.0-0.1) K/uL Nucleated RBC % 0.0 /100WBC Nucleated RBCs # 0 K/uL Sodium 136 (136-148) mmol/L Potassium 4.0 (3.5-5.1) mmol/L Chloride 97 L (98-107) mmol/L Carbon Dioxide 38.3 H (21.0-32.0) mmol/L BUN 12 (7.0-18.0) mg/dL Creatinine 1.0 (0.8-1.3) mg/dL Est Cr Clr Drug Dosing 112.25 mL/min Estimated GFR (MDRD) > 60.0 ml/min Glucose 156 H (74-106) mg/dL POC Glucose 137 H (60-110) mg/dL Calcium 9.5 (8.5-10.1) mg/dL Total Bilirubin 1.0 (0.2-1.0) mg/dL AST 19 (15-37) IU/L ALT 32 (14-63) IU/L Alkaline Phosphatase 152 H (46-116) U/L Total Protein 7.9 (6.4-8.2) g/dL Albumin 3.4 (3.4-5.0) g/dL Globulin 4.5 H (2.6-4.0) g/dL Albumin/Globulin Ratio 0.8 L (0.9-1.6) 05/09/20 Range/Units 11:25 WBC (4.0-11.0) K/uL RBC (4.50-5.90) M/uL Hgb (13.0-17.0) g/dL Hct (38.0-50.0) % MCV (80.0-98.0) fL MCH (27.0-32.0) pg MCHC (31.0-37.0) g/dL RDW Std Deviation (28.0-62.0) fl RDW Coeff of Nabor (11.0-15.0) % Plt Count (150-400) K/uL MPV (7.40-12.00) fL Neut % (Auto) (48.0-80.0) % Lymph % (Auto) (16.0-40.0) % Park % (Auto) (0.0-15.0) % Eos % (Auto) (0.0-7.0) % Baso % (Auto) (0.0-1.5) % Neut # (Auto) (1.4-5.7) K/uL Lymph # (Auto) (0.6-2.4) K/uL Park # (Auto) (0.0-0.8) K/uL Eos # (Auto) (0.0-0.7) K/uL Baso # (Auto) (0.0-0.1) K/uL Nucleated RBC % /100WBC Nucleated RBCs # K/uL Sodium (136-148) mmol/L Potassium (3.5-5.1) mmol/L Chloride (98-107) mmol/L Carbon Dioxide (21.0-32.0) mmol/L BUN (7.0-18.0) mg/dL Creatinine (0.8-1.3) mg/dL Est Cr Clr Drug Dosing mL/min Estimated GFR (MDRD) ml/min Glucose (74-106) mg/dL POC Glucose 184 H (60-110) mg/dL Calcium (8.5-10.1) mg/dL Total Bilirubin (0.2-1.0) mg/dL AST (15-37) IU/L ALT (14-63) IU/L Alkaline Phosphatase (46-116) U/L Total Protein (6.4-8.2) g/dL Albumin (3.4-5.0) g/dL Globulin (2.6-4.0) g/dL Albumin/Globulin Ratio (0.9-1.6) Med Orders - Current: Current Medications Acetaminophen (Tylenol Extra Strength) 500 mg PO Q6H PRN PRN Reason: Pain Last Admin: 05/07/20 20:33 Dose: 500 mg Documented by: Albuterol/Ipratropium (Duoneb 3.0-0.5 Mg/3 Ml) 3 ml NEB Q6HRRT [facility] Last Admin: 05/09/20 18:05 Dose: 3 ml Documented by: Furosemide (Lasix) 40 mg IVPUSH TID [facility] Last Admin: 05/09/20 13:55 Dose: 40 mg Documented by: Heparin Sodium (Porcine) (Heparin Sodium) 5,000 units SUBCUT Q8H [facility] Last Admin: 05/09/20 16:07 Dose: 5,000 units Documented by: Insulin Aspart (Novolog) 0 unit SUBCUT TIDAC [facility]; Protocol Last Admin: 05/09/20 17:03 Dose: Not Given Documented by: Labetalol HCl (Normodyne) 10 mg IVPUSH Q4H PRN PRN Reason: Hypertension Lisinopril (Prinivil) 10 mg PO DAILY [facility] Last Admin: 05/09/20 08:54 Dose: 10 mg Documented by: Nicotine (Habitrol) 21 mg TRDERM DAILY [facility] Last Admin: 05/09/20 08:55 Dose: 21 mg Documented by: Nystatin (Nystatin Crm) 1 gm TOP BID [facility] Last Admin: 05/09/20 09:06 Dose: 1 gram Documented by: Ondansetron HCl (Zofran) 4 mg IVPUSH Q4H PRN PRN Reason: Nausea/Vomiting Oxycodone HCl (Oxycodone) 5 mg PO Q6H PRN PRN Reason: Pain Last Admin: 05/09/20 11:20 Dose: 5 mg Documented by: Sodium Chloride (Saline Flush) 10 ml FLUSH ASDIRECTED PRN PRN Reason: Keep Vein Open Sodium Chloride (Saline Flush) 2.5 ml FLUSH ASDIRECTED PRN PRN Reason: Keep Vein Open Sodium Chloride (Normal Saline) 10 ml IV ASDIRECTED PRN PRN Reason: IV Use Discontinued Medications Acetaminophen (Tylenol Extra Strength) 500 mg PO Q12H PRN PRN Reason: Pain Last Admin: 05/07/20 10:52 Dose: 500 mg Documented by: Albuterol/Ipratropium (Duoneb 3.0-0.5 Mg/3 Ml) 3 ml NEB Q4H PRN PRN Reason: Shortness Of Breath/wheezing Amlodipine Besylate (Norvasc) 5 mg PO DAILY [facility] Last Admin: 05/06/20 16:32 Dose: 5 mg Documented by: Bacitracin (Bacitracin Oint 1 Gm) 1 dose TOP ONETIME ONE Stop: 05/09/20 07:48 Last Admin: 05/09/20 09:06 Dose: 1 dose Documented by: Furosemide (Lasix) Confirm Administered Dose 40 mg .ROUTE .STK-MED ONE Stop: 05/06/20 14:49 Last Admin: 05/06/20 14:52 Dose: Not Given Documented by: Furosemide (Lasix) 40 mg IVPUSH NOW ONE Stop: 05/06/20 14:52 Last Admin: 05/06/20 14:52 Dose: 40 mg Documented by: Furosemide (Lasix) 40 mg IVPUSH BID [facility]AN[place] Last Admin: 05/08/20 08:43 Dose: 40 mg Documented by: Furosemide 40 mg/ Sodium (Chloride) 54 mls @ 100 mls/hr IV ONETIME ONE Stop: 05/06/20 15:14 Last Admin: 05/06/20 19:32 Dose: Not Given Documented by: Iopamidol (Isovue-370 (76%)) 100 ml IVPUSH ONETIME ONE Stop: 05/06/20 14:10 Last Admin: 05/06/20 14:09 Dose: 100 ml Documented by: Morphine Sulfate (Morphine) 1 mg IVPUSH Q6H PRN PRN Reason: Pain (severe 7-10) Stop: 05/07/20 15:36 Last Admin: 05/07/20 02:33 Dose: 1 mg Documented by: Morphine Sulfate (Morphine) 1 mg IVPUSH ONETIME ONE Stop: 05/07/20 21:58 Last Admin: 05/08/20 01:57 Dose: Not Given Documented by: Sepsis Event Note - Focused Exam Vital Signs: Vital Signs Temp Pulse Resp BP BP Pulse Ox 05/09/20 16:16 36.5 C 20 120/46 L 92 L 05/09/20 11:45 35.6 C L 85 20 102/46 L 97 05/09/20 08:54 105/64 05/09/20 08:00 37.4 C 97 20 105/64 90 L Date Exam was Performed: 05/09/20 Time Exam was Performed: 19:39 - Problem List & Annotations (1) New onset of congestive heart failure SNOMED Code(s): 54093664 Code(s): I50.9 - HEART FAILURE, UNSPECIFIED Status: Acute Current Visit: Yes (2) HTN (hypertension) SNOMED Code(s): 13070653 Code(s): I10 - ESSENTIAL (PRIMARY) HYPERTENSION Status: Acute Current Visit: Yes (3) Acute respiratory failure with hypoxia SNOMED Code(s): 36081338, 104343408 Code(s): J96.01 - ACUTE RESPIRATORY FAILURE WITH HYPOXIA Status: Acute Current Visit: Yes - Plan Plan:: I have seen and evaluated the patient and agree with the residents note unless specified in my note
[2020-05-07] MEDS: Insulin Aspart 100 Units/ML 3 ML Pen SUBCUT SCH ×2 (13:53→17:51)
[2020-05-07] MEDS: Nystatin Crm 30 GM Tube TOP SCH ×2 (15:29→20:47)
[2020-05-07] MEDS: Nicotine 21 MG/24 Hr Patch TRDERM SCH (15:29)
--- NOTE | 2020-05-07 15:58 | US ---
Limited abdominal ultrasound: Multiple real-time images of the upper right abdomen were obtained. Liver appears echogenic most likely representing fatty infiltration. Liver is also mildly enlarged. Inferior vena cava is patent. Right kidney shows no hydronephrosis or mass has a length of 11.8 cm. Gallbladder is contracted and shows gallbladder wall thickening. No biliary duct dilatation is seen. No shadowing gallstones are identified. Visualized portions of the pancreas shows no discrete abnormality. Distal and mid aorta not seen due to bowel gas. Impression: 1. Gallbladder is contracted showing no definite shadowing gallstones. Gallbladder wall is thickened. No biliary duct dilatation is seen. If patient symptoms suggest the possibility of chronic cholecystitis, biliary HIDA scan could be considered to further evaluate. 2. Mid and distal aorta not seen due to bowel gas. 3. No fatty infiltration within the liver. Liver is also generous in size. Diagnostic code #3 This report was dictated in MDT
[2020-05-07] MEDS ORDERED: Morphine 2 MG/ML Syringe IVPUSH ONE (21:57)
[2020-05-08] MEDS: Heparin Sodium 5,000 Units/ML Vial SUBCUT SCH ×4 (00:48→23:31)
[2020-05-08] MEDS: oxyCODONE 5 MG Tab PO PRN ×3 (01:55→20:58)
[2020-05-08] MEDS: Insulin Aspart 100 Units/ML 3 ML Pen SUBCUT SCH ×3 (06:51→17:59)
[2020-05-08 06:52] LABS: BLOOD UREA NITROGEN,BUN 12 mg/dL (7.0-18.0); CARBON DIOXIDE,CO2 35.2 mmol/L (21.0-32.0); CHLORIDE,CL 101 mmol/L (98-107); GLUCOSE RANDOM 115 mg/dL (74-106); POTASSIUM,K 4.1 mmol/L (3.5-5.1); SODIUM,NA 140 mmol/L (136-148)
[2020-05-08] MEDS: Furosemide 40 MG/4 ML VIAL IVPUSH SCH ×3 (08:43→21:00)
[2020-05-08] MEDS: Nicotine 21 MG/24 Hr Patch TRDERM SCH (08:44)
[2020-05-08] MEDS: Nystatin Crm 30 GM Tube TOP SCH ×2 (08:45→20:59)
[2020-05-08] MEDS: Lisinopril 10 MG Tab PO SCH (08:46)
[2020-05-08] MEDS: Albuterol/Ipratropium 3.0-0.5 MG/3 ML Neb Soln NEB SCH ×3 (11:17→23:32)
--- NOTE | 2020-05-08 12:27 | PCM.PN ---
- General Info Date of Service: 05/08/20 Subjective Update: Bedside: pt ./feeling less lethargic this AM. Mentions urinating w.o issues; pain from lower back radiating into legs; no bowel and or bladder incontinence. Functional Status: Reports: Urinating - Review of Systems General: Denies: No Symptoms HEENT: Denies: No Symptoms Pulmonary: Reports: Cough, Wheezing Cardiovascular: Reports: No Symptoms, Dyspnea on Exertion, Edema Gastrointestinal: Denies: Abdominal Pain, Diarrhea, Nausea, Vomiting Genitourinary: Reports: No Symptoms Musculoskeletal: Reports: Back Pain, Leg Pain Skin: Reports: No Symptoms Neurological: Reports: No Symptoms - Patient Data Vitals - Most Recent: Last Vital Signs Temp 98.4 F 05/08/20 07:10 Pulse 85 05/08/20 07:10 Resp 18 05/08/20 07:10 BP 115/61 05/08/20 08:46 Pulse Ox 97 05/08/20 07:10 Weight - Most Recent: 191.4 kg I&O - Last 24 Hours: Intake & Output 05/07/20 05/08/20 05/08/20 22:59 06:59 14:59 Intake Total 750 450 Output Total 1914 1830 Balance -1165 -1380 Lab Results Last 24 Hours: Laboratory Results - last 24 hr 05/07/20 05/07/20 05/08/20 Range/Units 05:55 17:49 05:56 WBC (4.0-11.0) K/uL RBC (4.50-5.90) M/uL Hgb (13.0-17.0) g/dL Hct (38.0-50.0) % MCV (80.0-98.0) fL MCH (27.0-32.0) pg MCHC (31.0-37.0) g/dL RDW Std Deviation (28.0-62.0) fl RDW Coeff of [place] (11.0-15.0) % Plt Count (150-400) K/uL MPV (7.40-12.00) fL Neut % (Auto) (48.0-80.0) % Lymph % (Auto) (16.0-40.0) % [place] % (Auto) (0.0-15.0) % Eos % (Auto) (0.0-7.0) % Baso % (Auto) (0.0-1.5) % Neut # (Auto) (1.4-5.7) K/uL Lymph # (Auto) (0.6-2.4) K/uL [place] # (Auto) (0.0-0.8) K/uL Eos # (Auto) (0.0-0.7) K/uL Baso # (Auto) (0.0-0.1) K/uL Nucleated RBC % /100WBC Nucleated RBCs # K/uL ABG pH (7.35-7.45) ABG pCO2 (35-45) mmHG ABG pO2 (75-100) mmHG ABG HCO3 (22-26) mEq/L ABG Total CO2 ABG Base Excess (-2.0-2.0) Sodium 140 (136-148) mmol/L Potassium 4.1 (3.5-5.1) mmol/L Chloride 101 (98-107) mmol/L Carbon Dioxide 35.2 H (21.0-32.0) mmol/L BUN 12 (7.0-18.0) mg/dL Creatinine 1.0 (0.8-1.3) mg/dL Est Cr Clr Drug Dosing 112.09 mL/min Estimated GFR (MDRD) > 60.0 ml/min Glucose 115 H (74-106) mg/dL POC Glucose 104 (60-110) mg/dL Calcium 9.1 (8.5-10.1) mg/dL Total Bilirubin 1.0 (0.2-1.0) mg/dL AST 22 (15-37) IU/L ALT 33 (14-63) IU/L Alkaline Phosphatase 154 H (46-116) U/L Total Protein 7.4 (6.4-8.2) g/dL Albumin 3.2 L (3.4-5.0) g/dL Globulin 4.2 H (2.6-4.0) g/dL Albumin/Globulin Ratio 0.8 L (0.9-1.6) Triglycerides 68 (0-200) mg/dL Cholesterol 168 (50-200) mg/dL LDL Cholesterol, Calc 127 (60-180) mg/dL VLDL Cholesterol 13 (5-55) mg/dL HDL Cholesterol 27 L (40-60) mg/dL Cholesterol/HDL Ratio 6.2 H (3.3-6.0) Free T4 0.97 (0.76-1.46) ng/dL SARS-CoV-2 RNA (RT-PCR) (NEGATIVE) 05/08/20 05/08/20 05/08/20 Range/Units 05:56 06:47 08:00 WBC 9.36 (4.0-11.0) K/uL RBC 5.06 (4.50-5.90) M/uL Hgb 13.7 (13.0-17.0) g/dL Hct 46.5 (38.0-50.0) % MCV 91.9 (80.0-98.0) fL MCH 27.1 (27.0-32.0) pg MCHC 29.5 L (31.0-37.0) g/dL RDW Std Deviation 58.3 (28.0-62.0) fl RDW Coeff of [place] 18 H (11.0-15.0) % Plt Count 297 (150-400) K/uL MPV 11.30 (7.40-12.00) fL Neut % (Auto) 69.0 (48.0-80.0) % Lymph % (Auto) 16.3 (16.0-40.0) % [place] % (Auto) 12.8 (0.0-15.0) % Eos % (Auto) 1.6 (0.0-7.0) % Baso % (Auto) 0.3 (0.0-1.5) % Neut # (Auto) 6.5 H (1.4-5.7) K/uL Lymph # (Auto) 1.5 (0.6-2.4) K/uL [place] # (Auto) 1.2 H (0.0-0.8) K/uL Eos # (Auto) 0.2 (0.0-0.7) K/uL Baso # (Auto) 0.0 (0.0-0.1) K/uL Nucleated RBC % 0.0 /100WBC Nucleated RBCs # 0 K/uL ABG pH (7.35-7.45) ABG pCO2 (35-45) mmHG ABG pO2 (75-100) mmHG ABG HCO3 (22-26) mEq/L ABG Total CO2 ABG Base Excess (-2.0-2.0) Sodium (136-148) mmol/L Potassium (3.5-5.1) mmol/L Chloride (98-107) mmol/L Carbon Dioxide (21.0-32.0) mmol/L BUN (7.0-18.0) mg/dL Creatinine (0.8-1.3) mg/dL Est Cr Clr Drug Dosing mL/min Estimated GFR (MDRD) ml/min Glucose (74-106) mg/dL POC Glucose 123 H (60-110) mg/dL Calcium (8.5-10.1) mg/dL Total Bilirubin (0.2-1.0) mg/dL AST (15-37) IU/L ALT (14-63) IU/L Alkaline Phosphatase (46-116) U/L Total Protein (6.4-8.2) g/dL Albumin (3.4-5.0) g/dL Globulin (2.6-4.0) g/dL Albumin/Globulin Ratio (0.9-1.6) Triglycerides (0-200) mg/dL Cholesterol (50-200) mg/dL LDL Cholesterol, Calc (60-180) mg/dL VLDL Cholesterol (5-55) mg/dL HDL Cholesterol (40-60) mg/dL Cholesterol/HDL Ratio (3.3-6.0) Free T4 (0.76-1.46) ng/dL SARS-CoV-2 RNA (RT-PCR) NEGATIVE (NEGATIVE) 05/08/20 05/08/20 Range/Units 09:57 11:30 WBC (4.0-11.0) K/uL RBC (4.50-5.90) M/uL Hgb (13.0-17.0) g/dL Hct (38.0-50.0) % MCV (80.0-98.0) fL MCH (27.0-32.0) pg MCHC (31.0-37.0) g/dL RDW Std Deviation (28.0-62.0) fl RDW Coeff of [place] (11.0-15.0) % Plt Count (150-400) K/uL MPV (7.40-12.00) fL Neut % (Auto) (48.0-80.0) % Lymph % (Auto) (16.0-40.0) % [place] % (Auto) (0.0-15.0) % Eos % (Auto) (0.0-7.0) % Baso % (Auto) (0.0-1.5) % Neut # (Auto) (1.4-5.7) K/uL Lymph # (Auto) (0.6-2.4) K/uL [place] # (Auto) (0.0-0.8) K/uL Eos # (Auto) (0.0-0.7) K/uL Baso # (Auto) (0.0-0.1) K/uL Nucleated RBC % /100WBC Nucleated RBCs # K/uL ABG pH 7.324 L (7.35-7.45) ABG pCO2 73 H (35-45) mmHG ABG pO2 80 (75-100) mmHG ABG HCO3 38 H (22-26) mEq/L ABG Total CO2 34.5 ABG Base Excess 9.0 H (-2.0-2.0) Sodium (136-148) mmol/L Potassium (3.5-5.1) mmol/L Chloride (98-107) mmol/L Carbon Dioxide (21.0-32.0) mmol/L BUN (7.0-18.0) mg/dL Creatinine (0.8-1.3) mg/dL Est Cr Clr Drug Dosing mL/min Estimated GFR (MDRD) ml/min Glucose (74-106) mg/dL POC Glucose 155 H (60-110) mg/dL Calcium (8.5-10.1) mg/dL Total Bilirubin (0.2-1.0) mg/dL AST (15-37) IU/L ALT (14-63) IU/L Alkaline Phosphatase (46-116) U/L Total Protein (6.4-8.2) g/dL Albumin (3.4-5.0) g/dL Globulin (2.6-4.0) g/dL Albumin/Globulin Ratio (0.9-1.6) Triglycerides (0-200) mg/dL Cholesterol (50-200) mg/dL LDL Cholesterol, Calc (60-180) mg/dL VLDL Cholesterol (5-55) mg/dL HDL Cholesterol (40-60) mg/dL Cholesterol/HDL Ratio (3.3-6.0) Free T4 (0.76-1.46) ng/dL SARS-CoV-2 RNA (RT-PCR) (NEGATIVE) Med Orders - Current: Current Medications Acetaminophen (Tylenol Extra Strength) 500 mg PO Q6H PRN PRN Reason: Pain Last Admin: 05/07/20 20:33 Dose: 500 mg Documented by: Albuterol/Ipratropium (Duoneb 3.0-0.5 Mg/3 Ml) 3 ml NEB Q6HRRT [facility] Last Admin: 05/08/20 11:17 Dose: 3 ml Documented by: Furosemide (Lasix) 40 mg IVPUSH TID [place] Heparin Sodium (Porcine) (Heparin Sodium) 5,000 units SUBCUT Q8H [facility] Last Admin: 05/08/20 08:44 Dose: 5,000 units Documented by: Insulin Aspart (Novolog) 0 unit SUBCUT TIDAC [facility]; Protocol Last Admin: 05/08/20 11:49 Dose: 1 units Documented by: Labetalol HCl (Normodyne) 10 mg IVPUSH Q4H PRN PRN Reason: Hypertension Lisinopril (Prinivil) 10 mg PO DAILY [facility] Last Admin: 05/08/20 08:46 Dose: 10 mg Documented by: Nicotine (Habitrol) 21 mg TRDERM DAILY [facility] Last Admin: 05/08/20 08:44 Dose: 21 mg Documented by: Nystatin (Nystatin Crm) 1 gm TOP BID [facility] Last Admin: 05/08/20 08:45 Dose: 1 gram Documented by: Ondansetron HCl (Zofran) 4 mg IVPUSH Q4H PRN PRN Reason: Nausea/Vomiting Oxycodone HCl (Oxycodone) 5 mg PO Q6H PRN PRN Reason: Pain Last Admin: 05/08/20 08:56 Dose: 5 mg Documented by: Sodium Chloride (Saline Flush) 10 ml FLUSH ASDIRECTED PRN PRN Reason: Keep Vein Open Sodium Chloride (Saline Flush) 2.5 ml FLUSH ASDIRECTED PRN PRN Reason: Keep Vein Open Sodium Chloride (Normal Saline) 10 ml IV ASDIRECTED PRN PRN Reason: IV Use Discontinued Medications Acetaminophen (Tylenol Extra Strength) 500 mg PO Q12H PRN PRN Reason: Pain Last Admin: 05/07/20 10:52 Dose: 500 mg Documented by: Albuterol/Ipratropium (Duoneb 3.0-0.5 Mg/3 Ml) 3 ml NEB Q4H PRN PRN Reason: Shortness Of Breath/wheezing Amlodipine Besylate (Norvasc) 5 mg PO DAILY [facility] Last Admin: 05/06/20 16:32 Dose: 5 mg Documented by: Furosemide (Lasix) Confirm Administered Dose 40 mg .ROUTE .STK-MED ONE Stop: 05/06/20 14:49 Last Admin: 05/06/20 14:52 Dose: Not Given Documented by: Furosemide (Lasix) 40 mg IVPUSH NOW ONE Stop: 05/06/20 14:52 Last Admin: 05/06/20 14:52 Dose: 40 mg Documented by: Furosemide (Lasix) 40 mg IVPUSH BID [facility] Last Admin: 05/08/20 08:43 Dose: 40 mg Documented by: Furosemide 40 mg/ Sodium (Chloride) 54 mls @ 100 mls/hr IV ONETIME ONE Stop: 05/06/20 15:14 Last Admin: 05/06/20 19:32 Dose: Not Given Documented by: Iopamidol (Isovue-370 (76%)) 100 ml IVPUSH ONETIME ONE Stop: 05/06/20 14:10 Last Admin: 05/06/20 14:09 Dose: 100 ml Documented by: Morphine Sulfate (Morphine) 1 mg IVPUSH Q6H PRN PRN Reason: Pain (severe 7-10) Stop: 05/07/20 15:36 Last Admin: 05/07/20 02:33 Dose: 1 mg Documented by: Morphine Sulfate (Morphine) 1 mg IVPUSH ONETIME ONE Stop: 05/07/20 21:58 Last Admin: 05/08/20 01:57 Dose: Not Given Documented by: - Exam Quality Assessment: Supplemental Oxygen General: Alert, Oriented, Cooperative, No Acute Distress HEENT: EOMI Neck: Supple Lungs: Other (b/l wheezes + mild crackles at bases b/l ) Cardiovascular: Regular Rate, Regular Rhythm GI/Abdominal Exam: Soft, Non-Tender, Other (obeses) (Male) Exam: Other (scrotal swelling ; unchanged from yesterday; no tenderness ) Extremities: Other (+4 pitting edema of lower extremity; mild improvment since admission ) Psy/Mental Status: Alert, Normal Affect Sepsis Event Note - Evaluation Sepsis Screening Result: No Definite Risk - Focused Exam Vital Signs: Vital Signs Temp Pulse Resp BP BP BP Pulse Ox 05/08/20 08:46 115/61 05/08/20 07:10 98.4 F 85 18 115/61 97 05/08/20 06:26 98.4 F 93 18 110/52 L 94 L 05/08/20 00:55 99.1 F 94 18 122/77 87 L Date Exam was Performed: 05/08/20 Time Exam was Performed: 12:28 - Problem List Review Problem List Initiated/Reviewed/Updated: Yes - My Orders Last 24 Hours: My Active Orders 05/07/20 11:30 Insulin Aspart [NovoLOG] See Protocol SUBCUT TIDAC 05/07/20 15:25 Acetaminophen [Tylenol Extra Strength] 500 mg PO Q6H PRN - Plan Plan:: 34 y/o M admitted for new onset CHF, generalized edema, likely hypertensive heart disease vs cor-pulmonale Appropriate Urine output increase Lasix frequency to 40 mg TID; continue strict I/O's Continue Bipap; Concerns for Hypercapnia despite mild compensation /based of AM ABG+scheduled DUO nebs q 6hrs 2d Echo: due to body habitus; echo was not sufficient at measuring Ejection fraction; no other structural abnormality appreciated; will require repeat ECHO; possibly at discharge. Pain meds switched to Oxycodone; concerns for sciatica as well; will continue to monitor once additional fluid is diuresed. Fluid restriction Ins and outs Daily weight Monitor and replete electrolytes as needed PRN labetalol Continue lisinopril 10 mg daily Elevated A1c; initiated SSI w. TID accu-checks Patient any hx of illicit drug use ; does endorse Tobacco abuse ; will start Nicotine patch
--- NOTE | 2020-05-08 13:25 | ECHO ---
EXAM DATE: 05/06/20 PATIENT'S AGE: 34 The ECHO report has been scanned into [facility] and can be seen in this patient's EMR (Electronic Medical Record) under the REPORTS section. The report has also been scanned into PACS. KM
[2020-05-09] MEDS: oxyCODONE 5 MG Tab PO PRN ×3 (05:18→21:15)
[2020-05-09] MEDS: Furosemide 40 MG/4 ML VIAL IVPUSH SCH ×3 (05:19→21:14)
[2020-05-09] MEDS: Albuterol/Ipratropium 3.0-0.5 MG/3 ML Neb Soln NEB SCH ×3 (05:46→18:05)
[2020-05-09 06:36] LABS: BLOOD UREA NITROGEN,BUN 12 mg/dL (7.0-18.0); CARBON DIOXIDE,CO2 38.3 mmol/L (21.0-32.0); CHLORIDE,CL 97 mmol/L (98-107); GLUCOSE RANDOM 156 mg/dL (74-106); SODIUM,NA 136 mmol/L (136-148)
[2020-05-09] MEDS ORDERED: Bacitracin Oint 1 GM U/D Packet TOP ONE (07:47)
[2020-05-09] MEDS: Insulin Aspart 100 Units/ML 3 ML Pen SUBCUT SCH ×3 (08:45→17:03)
[2020-05-09] MEDS: Lisinopril 10 MG Tab PO SCH (08:54)
[2020-05-09] MEDS: Nicotine 21 MG/24 Hr Patch TRDERM SCH (08:55)
[2020-05-09] MEDS: Heparin Sodium 5,000 Units/ML Vial SUBCUT SCH ×2 (08:57→16:07)
[2020-05-09] MEDS: Nystatin Crm 30 GM Tube TOP SCH ×2 (09:06→20:28)
--- NOTE | 2020-05-09 09:09 | PCM.PN ---
- General Info Date of Service: 05/09/20 Subjective Update: Feeling tired this AM. Urinating w.o incident. Still complaining of discomfort in testicles - Review of Systems General: Reports: No Symptoms HEENT: Reports: No Symptoms Pulmonary: Denies: Shortness of Breath, Cough, Wheezing Cardiovascular: Reports: Dyspnea on Exertion, Edema. Denies: Chest Pain, Palpitations Gastrointestinal: Denies: Constipation, Nausea, Vomiting Genitourinary: Reports: Frequency Musculoskeletal: Reports: No Symptoms Skin: Reports: No Symptoms Neurological: Reports: Headache Psychiatric: Reports: No Symptoms - Patient Data Vitals - Most Recent: Last Vital Signs Temp 98.2 F 05/09/20 04:19 Pulse 92 05/09/20 04:19 Resp 16 05/09/20 04:19 BP 116/67 05/09/20 04:19 Pulse Ox 93 L 05/09/20 04:19 Weight - Most Recent: 190 kg I&O - Last 24 Hours: Intake & Output 05/08/20 05/09/20 05/09/20 22:59 06:59 14:59 Intake Total 750 750 Output Total 1860 2620 Balance -1110 -1870 Lab Results Last 24 Hours: Laboratory Results - last 24 hr 05/08/20 05/08/20 05/08/20 Range/Units 06:47 09:57 11:30 WBC (4.0-11.0) K/uL RBC (4.50-5.90) M/uL Hgb (13.0-17.0) g/dL Hct (38.0-50.0) % MCV (80.0-98.0) fL MCH (27.0-32.0) pg MCHC (31.0-37.0) g/dL RDW Std Deviation (28.0-62.0) fl RDW Coeff of [place] (11.0-15.0) % Plt Count (150-400) K/uL MPV (7.40-12.00) fL Neut % (Auto) (48.0-80.0) % Lymph % (Auto) (16.0-40.0) % [place] % (Auto) (0.0-15.0) % Eos % (Auto) (0.0-7.0) % Baso % (Auto) (0.0-1.5) % Neut # (Auto) (1.4-5.7) K/uL Lymph # (Auto) (0.6-2.4) K/uL [place] # (Auto) (0.0-0.8) K/uL Eos # (Auto) (0.0-0.7) K/uL Baso # (Auto) (0.0-0.1) K/uL Nucleated RBC % /100WBC Nucleated RBCs # K/uL ABG pH 7.324 L (7.35-7.45) ABG pCO2 73 H (35-45) mmHG ABG pO2 80 (75-100) mmHG ABG HCO3 38 H (22-26) mEq/L ABG Total CO2 34.5 ABG Base Excess 9.0 H (-2.0-2.0) Sodium (136-148) mmol/L Potassium (3.5-5.1) mmol/L Chloride (98-107) mmol/L Carbon Dioxide (21.0-32.0) mmol/L BUN (7.0-18.0) mg/dL Creatinine (0.8-1.3) mg/dL Est Cr Clr Drug Dosing mL/min Estimated GFR (MDRD) ml/min Glucose (74-106) mg/dL POC Glucose 123 H 155 H (60-110) mg/dL Calcium (8.5-10.1) mg/dL Total Bilirubin (0.2-1.0) mg/dL AST (15-37) IU/L ALT (14-63) IU/L Alkaline Phosphatase (46-116) U/L Total Protein (6.4-8.2) g/dL Albumin (3.4-5.0) g/dL Globulin (2.6-4.0) g/dL Albumin/Globulin Ratio (0.9-1.6) 05/08/20 05/09/20 05/09/20 Range/Units 17:37 06:01 06:01 WBC 11.39 H (4.0-11.0) K/uL RBC 5.19 (4.50-5.90) M/uL Hgb 14.4 (13.0-17.0) g/dL Hct 47.5 (38.0-50.0) % MCV 91.5 (80.0-98.0) fL MCH 27.7 (27.0-32.0) pg MCHC 30.3 L (31.0-37.0) g/dL RDW Std Deviation 57.8 (28.0-62.0) fl RDW Coeff of [place] 17 H (11.0-15.0) % Plt Count 274 (150-400) K/uL MPV 10.50 (7.40-12.00) fL Neut % (Auto) 79.4 (48.0-80.0) % Lymph % (Auto) 9.6 L (16.0-40.0) % [place] % (Auto) 10.4 (0.0-15.0) % Eos % (Auto) 0.4 (0.0-7.0) % Baso % (Auto) 0.2 (0.0-1.5) % Neut # (Auto) 9.1 H (1.4-5.7) K/uL Lymph # (Auto) 1.1 (0.6-2.4) K/uL [place] # (Auto) 1.2 H (0.0-0.8) K/uL Eos # (Auto) 0.0 (0.0-0.7) K/uL Baso # (Auto) 0.0 (0.0-0.1) K/uL Nucleated RBC % 0.0 /100WBC Nucleated RBCs # 0 K/uL ABG pH (7.35-7.45) ABG pCO2 (35-45) mmHG ABG pO2 (75-100) mmHG ABG HCO3 (22-26) mEq/L ABG Total CO2 ABG Base Excess (-2.0-2.0) Sodium 136 (136-148) mmol/L Potassium 4.0 (3.5-5.1) mmol/L Chloride 97 L (98-107) mmol/L Carbon Dioxide 38.3 H (21.0-32.0) mmol/L BUN 12 (7.0-18.0) mg/dL Creatinine 1.0 (0.8-1.3) mg/dL Est Cr Clr Drug Dosing 112.25 mL/min Estimated GFR (MDRD) > 60.0 ml/min Glucose 156 H (74-106) mg/dL POC Glucose 102 (60-110) mg/dL Calcium 9.5 (8.5-10.1) mg/dL Total Bilirubin 1.0 (0.2-1.0) mg/dL AST 19 (15-37) IU/L ALT 32 (14-63) IU/L Alkaline Phosphatase 152 H (46-116) U/L Total Protein 7.9 (6.4-8.2) g/dL Albumin 3.4 (3.4-5.0) g/dL Globulin 4.5 H (2.6-4.0) g/dL Albumin/Globulin Ratio 0.8 L (0.9-1.6) Med Orders - Current: Current Medications Acetaminophen (Tylenol Extra Strength) 500 mg PO Q6H PRN PRN Reason: Pain Last Admin: 05/07/20 20:33 Dose: 500 mg Documented by: Albuterol/Ipratropium (Duoneb 3.0-0.5 Mg/3 Ml) 3 ml NEB Q6HRRT [facility] Last Admin: 05/09/20 05:46 Dose: 3 ml Documented by: Furosemide (Lasix) 40 mg IVPUSH TID [facility] Last Admin: 05/09/20 05:19 Dose: 40 mg Documented by: Heparin Sodium (Porcine) (Heparin Sodium) 5,000 units SUBCUT Q8H [facility] Last Admin: 05/08/20 23:31 Dose: 5,000 units Documented by: Insulin Aspart (Novolog) 0 unit SUBCUT TIDAC [facility]; Protocol Last Admin: 05/09/20 08:45 Dose: Not Given Documented by: Labetalol HCl (Normodyne) 10 mg IVPUSH Q4H PRN PRN Reason: Hypertension Lisinopril (Prinivil) 10 mg PO DAILY [facility] Last Admin: 05/08/20 08:46 Dose: 10 mg Documented by: Nicotine (Habitrol) 21 mg TRDERM DAILY [facility] Last Admin: 05/08/20 08:44 Dose: 21 mg Documented by: Nystatin (Nystatin Crm) 1 gm TOP BID [facility] Last Admin: 05/08/20 20:59 Dose: 1 gram Documented by: Ondansetron HCl (Zofran) 4 mg IVPUSH Q4H PRN PRN Reason: Nausea/Vomiting Oxycodone HCl (Oxycodone) 5 mg PO Q6H PRN PRN Reason: Pain Last Admin: 05/09/20 05:18 Dose: 5 mg Documented by: Sodium Chloride (Saline Flush) 10 ml FLUSH ASDIRECTED PRN PRN Reason: Keep Vein Open Sodium Chloride (Saline Flush) 2.5 ml FLUSH ASDIRECTED PRN PRN Reason: Keep Vein Open Sodium Chloride (Normal Saline) 10 ml IV ASDIRECTED PRN PRN Reason: IV Use Discontinued Medications Acetaminophen (Tylenol Extra Strength) 500 mg PO Q12H PRN PRN Reason: Pain Last Admin: 05/07/20 10:52 Dose: 500 mg Documented by: Albuterol/Ipratropium (Duoneb 3.0-0.5 Mg/3 Ml) 3 ml NEB Q4H PRN PRN Reason: Shortness Of Breath/wheezing Amlodipine Besylate (Norvasc) 5 mg PO DAILY [facility] Last Admin: 05/06/20 16:32 Dose: 5 mg Documented by: Bacitracin (Bacitracin Oint 1 Gm) 1 dose TOP ONETIME ONE Stop: 05/09/20 07:48 Furosemide (Lasix) Confirm Administered Dose 40 mg .ROUTE .STK-MED ONE Stop: 05/06/20 14:49 Last Admin: 05/06/20 14:52 Dose: Not Given Documented by: Furosemide (Lasix) 40 mg IVPUSH NOW ONE Stop: 05/06/20 14:52 Last Admin: 05/06/20 14:52 Dose: 40 mg Documented by: Furosemide (Lasix) 40 mg IVPUSH BID [facility] Last Admin: 05/08/20 08:43 Dose: 40 mg Documented by: Furosemide 40 mg/ Sodium (Chloride) 54 mls @ 100 mls/hr IV ONETIME ONE Stop: 05/06/20 15:14 Last Admin: 05/06/20 19:32 Dose: Not Given Documented by: Iopamidol (Isovue-370 (76%)) 100 ml IVPUSH ONETIME ONE Stop: 05/06/20 14:10 Last Admin: 05/06/20 14:09 Dose: 100 ml Documented by: Morphine Sulfate (Morphine) 1 mg IVPUSH Q6H PRN PRN Reason: Pain (severe 7-10) Stop: 05/07/20 15:36 Last Admin: 05/07/20 02:33 Dose: 1 mg Documented by: Morphine Sulfate (Morphine) 1 mg IVPUSH ONETIME ONE Stop: 05/07/20 21:58 Last Admin: 05/08/20 01:57 Dose: Not Given Documented by: - Exam Quality Assessment: Supplemental Oxygen General: Alert, Oriented, Cooperative, No Acute Distress HEENT: EOMI Neck: Supple Lungs: Other (moving air well, ) Cardiovascular: Regular Rate, Regular Rhythm GI/Abdominal Exam: Soft (interval imrprovment of abdominal swelling ), Other (Male) Exam: Other (testicles size unchanged from yesterday. Mild skin breakdown noted from stretching of skin at perineum-testicular junction ; no signs of infection ) Extremities: Other (+3 pitting edema; b/; ) Neurological: No New Focal Deficit Psy/Mental Status: Alert, Normal Affect, Normal Mood Sepsis Event Note - Evaluation Sepsis Screening Result: No Definite Risk - Focused Exam Vital Signs: Vital Signs Temp Pulse Resp BP Pulse Ox 05/09/20 04:19 98.2 F 92 16 116/67 93 L 05/08/20 23:44 97 F 94 18 124/48 L 93 L Date Exam was Performed: 05/09/20 Time Exam was Performed: 10:55 - Problem List Review Problem List Initiated/Reviewed/Updated: Yes - Plan Plan:: 34 y/o M admitted for new onset CHF, generalized edema, likely hypertensive heart disease vs cor-pulmonale Appropriate Urine output continue Lasix frequency to 40 mg TID; continue strict I/O's Continue Bipap; Concerns for Hypercapnia despite mild compensation 2d Echo: due to body habitus; echo was not sufficient at measuring Ejection fraction; no other structural abnormality appreciated; will require repeat ECHO; possibly at discharge. Pain meds switched to Oxycodone; concerns for sciatica as well; will continue to monitor once additional fluid is diuresed. Advised to continue to keep both legs and testicles raised to reduce edema Fluid restriction Ins and outs Daily weight Monitor and replete electrolytes as needed PRN labetalol Continue lisinopril 10 mg daily Elevated A1c; initiated SSI w. TID accu-checks Patient any hx of illicit drug use ; does endorse Tobacco abuse ; will start Nicotine patch
[2020-05-10] MEDS: Heparin Sodium 5,000 Units/ML Vial SUBCUT SCH ×3 (00:04→17:27)
[2020-05-10] MEDS: Albuterol/Ipratropium 3.0-0.5 MG/3 ML Neb Soln NEB SCH ×3 (00:05→14:42)
[2020-05-10] MEDS: oxyCODONE 5 MG Tab PO PRN ×2 (05:58→17:27)
[2020-05-10] MEDS: Furosemide 40 MG/4 ML VIAL IVPUSH SCH ×2 (05:59→14:47)
[2020-05-10] MEDS: Insulin Aspart 100 Units/ML 3 ML Pen SUBCUT SCH ×2 (06:33→11:35)
[2020-05-10 06:47] LABS: BLOOD UREA NITROGEN,BUN 14 mg/dL (7.0-18.0); CARBON DIOXIDE,CO2 36.1 mmol/L (21.0-32.0); CHLORIDE,CL 96 mmol/L (98-107); GLUCOSE RANDOM 117 mg/dL (74-106); POTASSIUM,K 3.6 mmol/L (3.5-5.1); SODIUM,NA 138 mmol/L (136-148)
[2020-05-10] MEDS: Lisinopril 10 MG Tab PO SCH (08:53)
[2020-05-10] MEDS: Nicotine 21 MG/24 Hr Patch TRDERM SCH (08:53)
[2020-05-10] MEDS: Nystatin Crm 30 GM Tube TOP SCH (08:54)
--- NOTE | 2020-05-10 10:45 | PCM.DCSUM1 ---
<Mohamud Gayle - Last Filed: 05/11/20 09:19> Discharge Summary - Hospital Course Free Text/Narrative:: 34-year-old male with a past medical history of hypertension presenting with progressive weight gain, lower body edema, scrotal swelling. Also complains of several months of exertional dyspnea. Denies any genital lesions, fever, hematuria, penile discharge, chest discomfort. No other complaints. ER course: patient was noted to be hypoxic to the high 80s on room air, started on NC,Twelve-lead EKG shows no acute ischemic changes. Was hypertensive as well, Labs were mostly reassuring. BNP is 370. Urinalysis shows protein and bilirubin. IMaging: CT imaging of the chest, abdomen, and pelvis which was indicative of volume overload but showed no other acute pathologic findings. Patient received IV diuresis and was admitted to hospital for further management. Echo: incomplete study secondary to body habitus; repeat outpatinet echo cardiogram rx provided at discharge Started aggressive diuresis with IV lasix:40 mg TID, Fluid restriction Ins and outs Lisinopril 10 mg daily intiated. Elevated A1c: pt started on SSI w. TID accu checks: sent home w. Metformin 500 daily; advised to follow up with PCP to discuss further treatment. Hospital course: continue diuresesi w. Lasix; total weight loss : 10 kg over total stay. Mild reduction in both lower extremity and abdominal swelling. Testicular swelling however was unchanged; kept testicles elevated to improve movement of fluid. Some skin tears noted at testicles/perineal junction; bacitracin applied. ABG showed hypercapneic hypoxemia: pt. started on Bipap; concerns for Obesity hypoventilation syndrome; pt. lethargy improved with Bipap overnight; pt. sent home w. Rx for home sleep study, outpatient ECHO, PCP follow up, PO lasix 60 mg bid. pt improved throughout stay but diuresis will take longer. Day of discharge: recommended pt. stay for further diuresis and Bipap and observation: pt requesting to be discharged; advised about risks and benefits if non-compliant with regimen of Lasix, elevation of dependent areas and his sleep apnea+OHS; pt understood and agreed. Advised to purchase a scale and to monitor weight loss; advised to notify provider for any weight gain despite taking lasix , continuing fluids restriction. pt understood. rx for home sleep study provided; pt advised to lose weight and stop smoking. Smoking cessation in light of OHS were explained to patient. Advised to use OTC meds for pain relief pt requested discharge. pt discharged in stable condition. Advised to notify provider and/or proceed to ED immediately if breathing becomes labored, increasing lethargy, increasing weight gain or overwhelming pain. - Discharge Data Discharge Date: 05/10/20 Discharge Disposition: Home, Self-Care 01 Condition: Stable - Referral to Home Health Primary Care Physician: Marlon Birmingham MD - Discharge Plan Prescriptions/Med Rec: metFORMIN [Glucophage] 500 mg PO DAILY 30 Days #30 tablet Furosemide [Lasix] 60 mg PO BID 30 Days #180 tablet lisinopriL [Prinivil] 10 mg PO DAILY 30 Days #30 tablet Home Medications: Home Meds Furosemide [Lasix] 60 mg PO BID 30 Days #180 tablet 05/10/20 [Rx] Nicotine [Habitrol] 21 mg TRDERM DAILY patch 05/10/20 [Rx] Nystatin [Nystatin Crm] 1 gm TOP BID tube 05/10/20 [Rx] lisinopriL [Prinivil] 10 mg PO DAILY 30 Days #30 tablet 05/10/20 [Rx] metFORMIN [Glucophage] 500 mg PO DAILY 30 Days #30 tablet 05/10/20 [Rx] Patient Handouts: Type 2 Diabetes Mellitus, Diagnosis, Adult, Furosemide tablets, Metformin extended-release tablets, Heart Failure, Self Care, [id number], Edema, Heart Failure Action Plan, Lisinopril tablets, Heart Failure, Diagnosis, [id number] Referrals: [facility] [Outside] Lakhwinder Shaw MD [Physician] - 06/13/20 9:00 am Wil Nieto MD [Ordering Only Provider] - 05/21/20 10:30 am - Discharge Summary/Plan Comment DC Time >30 min.: No - Patient Data Vitals - Most Recent: Last Vital Signs Temp 97.6 F 05/10/20 07:42 Pulse 86 05/10/20 04:30 Resp 20 05/10/20 07:42 BP 130/90 05/10/20 08:53 Pulse Ox 91 L 05/10/20 07:42 Weight - Most Recent: 185.973 kg I&O - Last 24 hours: Intake & Output 05/09/20 05/10/20 05/10/20 22:59 06:59 14:59 Intake Total 750 Output Total 9695 2019 Balance -6325 -6130 Lab Results - Last 24 hrs: Laboratory Results - last 24 hr 05/09/20 05/09/20 05/09/20 Range/Units 07:41 11:25 17:00 WBC (4.0-11.0) K/uL RBC (4.50-5.90) M/uL Hgb (13.0-17.0) g/dL Hct (38.0-50.0) % MCV (80.0-98.0) fL MCH (27.0-32.0) pg MCHC (31.0-37.0) g/dL RDW Std Deviation (28.0-62.0) fl RDW Coeff of Nabor (11.0-15.0) % Plt Count (150-400) K/uL MPV (7.40-12.00) fL Neut % (Auto) (48.0-80.0) % Lymph % (Auto) (16.0-40.0) % Stanley % (Auto) (0.0-15.0) % Eos % (Auto) (0.0-7.0) % Baso % (Auto) (0.0-1.5) % Neut # (Auto) (1.4-5.7) K/uL Lymph # (Auto) (0.6-2.4) K/uL Stanley # (Auto) (0.0-0.8) K/uL Eos # (Auto) (0.0-0.7) K/uL Baso # (Auto) (0.0-0.1) K/uL Nucleated RBC % /100WBC Nucleated RBCs # K/uL Sodium (136-148) mmol/L Potassium (3.5-5.1) mmol/L Chloride (98-107) mmol/L Carbon Dioxide (21.0-32.0) mmol/L BUN (7.0-18.0) mg/dL Creatinine (0.8-1.3) mg/dL Est Cr Clr Drug Dosing mL/min Estimated GFR (MDRD) ml/min Glucose (74-106) mg/dL POC Glucose 137 H 184 H 109 (60-110) mg/dL Calcium (8.5-10.1) mg/dL Total Bilirubin (0.2-1.0) mg/dL AST (15-37) IU/L ALT (14-63) IU/L Alkaline Phosphatase (46-116) U/L Total Protein (6.4-8.2) g/dL Albumin (3.4-5.0) g/dL Globulin (2.6-4.0) g/dL Albumin/Globulin Ratio (0.9-1.6) 05/10/20 05/10/20 05/10/20 Range/Units 05:44 05:44 06:11 WBC 8.86 (4.0-11.0) K/uL RBC 5.13 (4.50-5.90) M/uL Hgb 14.1 (13.0-17.0) g/dL Hct 46.1 (38.0-50.0) % MCV 89.9 (80.0-98.0) fL MCH 27.5 (27.0-32.0) pg MCHC 30.6 L (31.0-37.0) g/dL RDW Std Deviation 57.5 (28.0-62.0) fl RDW Coeff of Nabor 17 H (11.0-15.0) % Plt Count 277 (150-400) K/uL MPV 10.60 (7.40-12.00) fL Neut % (Auto) 69.5 (48.0-80.0) % Lymph % (Auto) 16.6 (16.0-40.0) % Stanley % (Auto) 12.1 (0.0-15.0) % Eos % (Auto) 1.6 (0.0-7.0) % Baso % (Auto) 0.2 (0.0-1.5) % Neut # (Auto) 6.2 H (1.4-5.7) K/uL Lymph # (Auto) 1.5 (0.6-2.4) K/uL Stanley # (Auto) 1.1 H (0.0-0.8) K/uL Eos # (Auto) 0.1 (0.0-0.7) K/uL Baso # (Auto) 0.0 (0.0-0.1) K/uL Nucleated RBC % 0.0 /100WBC Nucleated RBCs # 0 K/uL Sodium 138 (136-148) mmol/L Potassium 3.6 (3.5-5.1) mmol/L Chloride 96 L (98-107) mmol/L Carbon Dioxide 36.1 H (21.0-32.0) mmol/L BUN 14 (7.0-18.0) mg/dL Creatinine 0.8 (0.8-1.3) mg/dL Est Cr Clr Drug Dosing 140.31 mL/min Estimated GFR (MDRD) > 60.0 ml/min Glucose 117 H (74-106) mg/dL POC Glucose 118 H (60-110) mg/dL Calcium 9.3 (8.5-10.1) mg/dL Total Bilirubin 1.0 (0.2-1.0) mg/dL AST 23 (15-37) IU/L ALT 31 (14-63) IU/L Alkaline Phosphatase 139 H (46-116) U/L Total Protein 7.7 (6.4-8.2) g/dL Albumin 3.4 (3.4-5.0) g/dL Globulin 4.3 H (2.6-4.0) g/dL Albumin/Globulin Ratio 0.8 L (0.9-1.6) Med Orders - Current: Current Medications Acetaminophen (Tylenol Extra Strength) 500 mg PO Q6H PRN PRN Reason: Pain Last Admin: 05/07/20 20:33 Dose: 500 mg Documented by: Albuterol/Ipratropium (Duoneb 3.0-0.5 Mg/3 Ml) 3 ml NEB Q6HRRT [facility] Last Admin: 05/10/20 05:44 Dose: 3 ml Documented by: Furosemide (Lasix) 40 mg IVPUSH TID [facility] Last Admin: 05/10/20 05:59 Dose: 40 mg Documented by: Heparin Sodium (Porcine) (Heparin Sodium) 5,000 units SUBCUT Q8H [facility] Last Admin: 05/10/20 08:49 Dose: 5,000 units Documented by: Insulin Aspart (Novolog) 0 unit SUBCUT TIDAC [facility]; Protocol Last Admin: 05/10/20 06:33 Dose: Not Given Documented by: Labetalol HCl (Normodyne) 10 mg IVPUSH Q4H PRN PRN Reason: Hypertension Lisinopril (Prinivil) 10 mg PO DAILY [facility] Last Admin: 05/10/20 08:53 Dose: 10 mg Documented by: Nicotine (Habitrol) 21 mg TRDERM DAILY [facility] Last Admin: 05/10/20 08:53 Dose: 21 mg Documented by: Nystatin (Nystatin Crm) 1 gm TOP BID [facility] Last Admin: 05/10/20 08:54 Dose: 1 gram Documented by: Ondansetron HCl (Zofran) 4 mg IVPUSH Q4H PRN PRN Reason: Nausea/Vomiting Oxycodone HCl (Oxycodone) 5 mg PO Q6H PRN PRN Reason: Pain Last Admin: 05/10/20 05:58 Dose: 5 mg Documented by: Sodium Chloride (Saline Flush) 10 ml FLUSH ASDIRECTED PRN PRN Reason: Keep Vein Open Sodium Chloride (Saline Flush) 2.5 ml FLUSH ASDIRECTED PRN PRN Reason: Keep Vein Open Sodium Chloride (Normal Saline) 10 ml IV ASDIRECTED PRN PRN Reason: IV Use Discontinued Medications Acetaminophen (Tylenol Extra Strength) 500 mg PO Q12H PRN PRN Reason: Pain Last Admin: 05/07/20 10:52 Dose: 500 mg Documented by: Albuterol/Ipratropium (Duoneb 3.0-0.5 Mg/3 Ml) 3 ml NEB Q4H PRN PRN Reason: Shortness Of Breath/wheezing Amlodipine Besylate (Norvasc) 5 mg PO DAILY [facility] Last Admin: 05/06/20 16:32 Dose: 5 mg Documented by: Bacitracin (Bacitracin Oint 1 Gm) 1 dose TOP ONETIME ONE Stop: 05/09/20 07:48 Last Admin: 05/09/20 09:06 Dose: 1 dose Documented by: Furosemide (Lasix) Confirm Administered Dose 40 mg .ROUTE .STK-MED ONE Stop: 05/06/20 14:49 Last Admin: 05/06/20 14:52 Dose: Not Given Documented by: Furosemide (Lasix) 40 mg IVPUSH NOW ONE Stop: 05/06/20 14:52 Last Admin: 05/06/20 14:52 Dose: 40 mg Documented by: Furosemide (Lasix) 40 mg IVPUSH BID [facility] Last Admin: 05/08/20 08:43 Dose: 40 mg Documented by: Furosemide 40 mg/ Sodium (Chloride) 54 mls @ 100 mls/hr IV ONETIME ONE Stop: 05/06/20 15:14 Last Admin: 05/06/20 19:32 Dose: Not Given Documented by: Iopamidol (Isovue-370 (76%)) 100 ml IVPUSH ONETIME ONE Stop: 05/06/20 14:10 Last Admin: 05/06/20 14:09 Dose: 100 ml Documented by: Morphine Sulfate (Morphine) 1 mg IVPUSH Q6H PRN PRN Reason: Pain (severe 7-10) Stop: 05/07/20 15:36 Last Admin: 05/07/20 02:33 Dose: 1 mg Documented by: Morphine Sulfate (Morphine) 1 mg IVPUSH ONETIME ONE Stop: 05/07/20 21:58 Last Admin: 05/08/20 01:57 Dose: Not Given Documented by: <Isaias Squires - Last Filed: 05/11/20 21:41> Discharge Summary - Referral to Home Health Primary Care Physician: Marlon Birmingham MD - Patient Data Vitals - Most Recent: Last Vital Signs Temp 36.2 C 05/10/20 17:30 Pulse 90 05/10/20 17:30 Resp 16 05/10/20 17:30 BP 150/100 H 05/10/20 17:30 Pulse Ox 97 05/10/20 17:30 Med Orders - Current: Current Medications Discontinued Medications Acetaminophen (Tylenol Extra Strength) 500 mg PO Q12H PRN PRN Reason: Pain Last Admin: 05/07/20 10:52 Dose: 500 mg Documented by: Acetaminophen (Tylenol Extra Strength) 500 mg PO Q6H PRN PRN Reason: Pain Last Admin: 05/07/20 20:33 Dose: 500 mg Documented by: Albuterol/Ipratropium (Duoneb 3.0-0.5 Mg/3 Ml) 3 ml NEB Q4H PRN PRN Reason: Shortness Of Breath/wheezing Albuterol/Ipratropium (Duoneb 3.0-0.5 Mg/3 Ml) 3 ml NEB Q6HRRT [facility] Last Admin: 05/10/20 14:42 Dose: 3 ml Documented by: Albuterol/Ipratropium (Duoneb 3.0-0.5 Mg/3 Ml) Confirm Administered Dose 3 ml .ROUTE .STK-MED ONE Stop: 05/10/20 14:41 Last Admin: 05/10/20 16:36 Dose: Not Given Documented by: Amlodipine Besylate (Norvasc) 5 mg PO DAILY [facility] Last Admin: 05/06/20 16:32 Dose: 5 mg Documented by: Bacitracin (Bacitracin Oint 1 Gm) 1 dose TOP ONETIME ONE Stop: 05/09/20 07:48 Last Admin: 05/09/20 09:06 Dose: 1 dose Documented by: Furosemide (Lasix) Confirm Administered Dose 40 mg .ROUTE .STK-MED ONE Stop: 05/06/20 14:49 Last Admin: 05/06/20 14:52 Dose: Not Given Documented by: Furosemide (Lasix) 40 mg IVPUSH NOW ONE Stop: 05/06/20 14:52 Last Admin: 05/06/20 14:52 Dose: 40 mg Documented by: Furosemide (Lasix) 40 mg IVPUSH BID [facility] Last Admin: 05/08/20 08:43 Dose: 40 mg Documented by: Furosemide (Lasix) 40 mg IVPUSH TID [facility] Last Admin: 05/10/20 14:47 Dose: 40 mg Documented by: Heparin Sodium (Porcine) (Heparin Sodium) 5,000 units SUBCUT Q8H [facility] Last Admin: 05/10/20 17:27 Dose: 5,000 units Documented by: Furosemide 40 mg/ Sodium (Chloride) 54 mls @ 100 mls/hr IV ONETIME ONE Stop: 05/06/20 15:14 Last Admin: 05/06/20 19:32 Dose: Not Given Documented by: Insulin Aspart (Novolog) 0 unit SUBCUT TIDAC [facility]; Protocol Last Admin: 05/10/20 11:35 Dose: 1 units Documented by: Iopamidol (Isovue-370 (76%)) 100 ml IVPUSH ONETIME ONE Stop: 05/06/20 14:10 Last Admin: 05/06/20 14:09 Dose: 100 ml Documented by: Labetalol HCl (Normodyne) 10 mg IVPUSH Q4H PRN PRN Reason: Hypertension Lisinopril (Prinivil) 10 mg PO DAILY [facility] Last Admin: 05/10/20 08:53 Dose: 10 mg Documented by: Morphine Sulfate (Morphine) 1 mg IVPUSH Q6H PRN PRN Reason: Pain (severe 7-10) Stop: 05/07/20 15:36 Last Admin: 05/07/20 02:33 Dose: 1 mg Documented by: Morphine Sulfate (Morphine) 1 mg IVPUSH ONETIME ONE Stop: 05/07/20 21:58 Last Admin: 05/08/20 01:57 Dose: Not Given Documented by: Nicotine (Habitrol) 21 mg TRDERM DAILY [facility] Last Admin: 05/10/20 08:53 Dose: 21 mg Documented by: Nystatin (Nystatin Crm) 1 gm TOP BID [facility] Last Admin: 05/10/20 08:54 Dose: 1 gram Documented by: Ondansetron HCl (Zofran) 4 mg IVPUSH Q4H PRN PRN Reason: Nausea/Vomiting Oxycodone HCl (Oxycodone) 5 mg PO Q6H PRN PRN Reason: Pain Last Admin: 05/10/20 17:27 Dose: 5 mg Documented by: Sodium Chloride (Saline Flush) 10 ml FLUSH ASDIRECTED PRN PRN Reason: Keep Vein Open Sodium Chloride (Saline Flush) 2.5 ml FLUSH ASDIRECTED PRN PRN Reason: Keep Vein Open Sodium Chloride (Normal Saline) 10 ml IV ASDIRECTED PRN PRN Reason: IV Use - Free Text/Narrative Note: I have seen and evaluated the patient with the resident. I have discussed findings and treatment plan with resident. I agree with the assessment and plan as outlined in the following note.
[2020-05-10] MEDS ORDERED: Albuterol/Ipratropium 3.0-0.5 MG/3 ML Neb Soln ONE (14:40)
[2020-05-10 18:05] VITALS: BP 150/100; PULSE 90
== END 2020-05-10 18:10 | disposition home or self-care (01) | DRG 291 ==
LOC: MW.ED 11:04 → MW.MS 14:42
PROVIDERS: ADMIT Student in an Organized Health Care Education/Training Program; ATTEND Student in an Organized Health Care Education/Training Program
PROC: 5A09357 Assistance with Respiratory Ventilation, Less than 24 Consecutive Hours, Continuous Positive Airway Pressure (ICD-10-PCS; principal; 2020-05-06)
DX: I11.0 Hypertensive heart disease with heart failure (principal); J96.01 Acute respiratory failure with hypoxia; E66.2 Morbid (severe) obesity with alveolar hypoventilation; Z68.43 Body mass index [BMI] 50.0-59.9, adult; I50.9 Heart failure, unspecified; F17.200 Nicotine dependence, unspecified, uncomplicated; M54.42 Lumbago with sciatica, left side; M54.41 Lumbago with sciatica, right side; N50.89 Other specified disorders of the male genital organs; Z91.030 Bee allergy status
CPT/HCPCS: 36415; 36600; 71045; 71045-26; 71260; 71260-26; 74177; 74177-26; 76705; 76705-26; 80048; 80053; 80061; 81001; 82803; 82962; 83036; 83735; 83880; 84100; 84439; 84443; 84484; 85025; 85610; 93005; 93306; 94640; 94660; 99285-25; A9270-GY; J1644; J1815-GY; J1940; J2270; J3490; J7620-GY; Q9967; U0002